=== PATIENT | male | born 1935 | race American Indian/Alaskan Native ===

== ENCOUNTER 2017-06-14 12:53 | Inpatient (IN) | payer MEDICARE, MEDICAID ==
[2017-06-14 12:53] VITALS: BMI 55.3
[2017-06-14] MEDS ORDERED: Sodium Chloride 0.9% 500 ML IV ONE ×2 (13:53→14:53)
[2017-06-14 14:38] LABS: BASO % 0.5 % (0.0-2.0); EOS # 0.2 K/uL (0.0-0.7); HEMATOCRIT 35.7 % (35.0-51.0); LYMPH # 1.5 K/uL (1.0-4.3); LYMPH % 17.9 % (20.0-40.0); MEAN CORPUSCULAR HEMOGLOBIN 29.8 pg (27.0-31.0); MEAN CORPUSCULAR HGB CONC 32.8 g/dL (33.0-37.0); MEAN PLATELET VOLUME 7.7 fL (7.2-11.7); MONO # 0.9 K/uL (0.0-0.8); MONO % 11.6 % (0.0-10.0); NRBC % 0.1 % (0.0-2.0); RED CELL DISTRIBUTION WIDTH 16.8 % (11.5-14.5); WHITE BLOOD COUNT 8.1 K/uL (4.8-10.8)
[2017-06-14 14:51] LABS: MEAN CELL VOLUME 90.9 fL (80.0-94.0)
[2017-06-14 15:03] LABS: INR 1.1
--- NOTE | 2017-06-14 15:03 | C.PDOC ---
History Of Present Illness 82 year old male presents to the ED via EMS after being sent from his [facility] for evaluation of rectal bleeding which was noted today. History obtained via [facility] notes due to patient's clinical condition (severe dementia). Time Seen by Provider: 06/14/17 13:23 Chief Complaint (Nursing): Abdominal Pain History Per: EMS, Other ([facility] ) History/Exam Limitations: clinical condition (severe dementia ) Onset/Duration Of Symptoms: Hrs Current Symptoms Are (Timing): Still Present Additional History Per: EMS, Custodial Past Medical History Reviewed: Historical Data, Nursing Documentation, Vital Signs Vital Signs: Last Vital Signs Temp Pulse 73 06/14/17 15:00 Resp 20 06/14/17 15:00 BP 127/64 06/14/17 15:00 Pulse Ox 99 06/14/17 15:00 - Medical History PMH: COPD, Dementia, Diabetes, Fractures (left wrist), HTN, Hypercholesterolemia , Parkinson's Disease Surgical History: No Surg Hx - [facility] Procedures CL FX REDUC-METACAR/CAR (10/30/02) COLONOSCOPY (08/03/06) ENDOSC POLYPECTOMY OF LG INTEST (03/14/05) ENDOSCOP DEST OF OTH LESION OR TISU OF LRG INTESTN (03/14/05) ESOPHAGOGASTRODUODENOSCOPY [EGD] W/CLOSED BIOPSY (08/03/06) INJECT/INFUSE NEC (03/14/05) MAGNETIC RESONANCE IMAGING OF BRAIN AND BRAIN STEM (08/28/05) OCCUPATIONAL THERAPY (05/06/14) OTH NONOPER CARD AND VASC MEASURE (12/26/14) PHYSICAL THERAPY NEC (05/06/14) TETANUS TOXOID ADMINIST (07/10/04) Family History: States: Unknown Family Hx - Social History Hx Tobacco Use: No Hx Alcohol Use: No Hx Substance Use: No - Immunization History Hx Tetanus Toxoid Vaccination: No Hx Influenza Vaccination: No Hx Pneumococcal Vaccination: Yes Review Of Systems Review Of Systems: ROS cannot be obtained secondary to pt's inabilty to answer questions. Physical Exam - Physical Exam Appears: Non-toxic, No Acute Distress, Chronically Ill Skin: Normal Color, Warm, Dry Head: Atraumatic, Normacephalic Eye(s): bilateral: Normal Inspection Oral Mucosa: Moist Neck: Normal ROM, Supple Chest: Symmetrical, No Deformity Cardiovascular: Rhythm Regular, No Murmur Respiratory: Normal Breath Sounds, No Rales, No Rhonchi, No Wheezing Gastrointestinal/Abdominal: Soft, No Tenderness Rectal: Heme Positive (black stools), No Mass, No Tenderness Extremity: Normal ROM, Capillary Refill (less than 2 seconds ) Neurological/Psych: Other (Oriented x1 at baseline according to geronimo) ED Course And Treatment - Laboratory Results Result Diagrams: 06/14/17 14:23 06/14/17 14:23 O2 Sat by Pulse Oximetry: 99 (on RA) Pulse Ox Interpretation: Normal Medical Decision Making Medical Decision Making: Progress: labs ordered and reviewed. IV Fluids administered. The case was discussed with the niece, Kendy Tiawo, who states that the patient was recently admitted in [facility] for rectal bleeding, anemia, and received 4 transfusion last week. Case was discussed with Dr. Russell Mike, who agrees to admit the patient. Disposition - Disposition Disposition: HOME/ ROUTINE Disposition Time: 13:00 Condition: FAIR - Clinical Impression Clinical Impression: GI bleeding - PA / DICE TABLE OPERATOR / Resident Statement MD/DO has reviewed & agrees with the documentation as recorded. - Scribe Statement The provider has reviewed the documentation as recorded by the Scribe (Sarah Mike) All medical record entries made by the Scribe were at my direction and personally dictated by me. I have reviewed the chart and agree that the record accurately reflects my personal performance of the history, physical exam, medical decision making, and the department course for this patient. I have also personally directed, reviewed, and agree with the discharge instructions and disposition.
[2017-06-14 15:13] LABS: CHLORIDE 105 mmol/L (98-107); SODIUM 142 mmol/L (132-148)
[2017-06-14 15:15] LABS: GFR AFRICAN-AMERICAN > 60
[2017-06-14 15:16] LABS: ALB/GLOB RATIO 1.2 (1.0-2.1); ALKALINE PHOSPHATASE 64 U/L (38-126); ALT/SGPT 13 U/L (21-72); AST/SGOT 21 U/L (17-59); BILIRUBIN,TOTAL 0.6 mg/dL (0.2-1.3); BLOOD UREA NITROGEN 19 mg/dL (9-20); CARBON DIOXIDE 21 mmol/L (22-30); GLUCOSE,RANDOM 78 mg/dL (75-110); TOTAL PROTEIN 6.1 g/dL (6.3-8.3)
[2017-06-14 15:17] LABS: CALCIUM 8.5 mg/dl (8.6-10.4)
[2017-06-14] MEDS ORDERED: Pantoprazole 40 mg EC Tab PO SCH (19:45)
--- NOTE | 2017-06-14 20:19 | CP.PCM.HP ---
History of Present Illness - History of Present Illness History of Present Illness: An 82-year-old male with P/M/H-severe dementia, COPD, DM, HTN, Parkinson's disease presented from halfway with C/O- rectal bleeding abdomen, abdominal pain and hematemesis. Patient was admitted last week at [facility] for rectal bleeding where EGD and colonoscopy were done which were suggestive of diverticular bleed and was given multiple blood transfusions. On Thursday, the attending noted tarry brown colored stools and on Thursday there was rectal bleeding with hematemesis for which he was brought to the hospital. On presentation, the patient is in coercive and unable to give further details. Hence further details could not be elicited. Past Patient History - Infectious Disease Hx of Infectious Diseases: None - Tetanus Immunizations Tetanus Immunization: Unknown - Past Medical History & Family History Past Medical History?: Yes - Past Social History Smoking Status: Never Smoked - CARDIAC Hx Hypercholesterolemia: Yes Hx Hypertension: Yes - PULMONARY Hx Chronic Obstructive Pulmonary Disease (COPD): Yes - NEUROLOGICAL Hx Dementia: Yes Hx Parkinson's Disease: Yes - HEENT Hx HEENT Problems: No - RENAL Hx Chronic Kidney Disease: No - ENDOCRINE/METABOLIC Hx Diabetes Mellitus Type 2: Yes - HEMATOLOGICAL/ONCOLOGICAL Hx Blood Disorders: No - INTEGUMENTARY Hx Dermatological Problems: No - MUSCULOSKELETAL/RHEUMATOLOGICAL Hx Fractures: Yes (left wrist) - GASTROINTESTINAL Hx Gastrointestinal Disorders: Yes Hx Ulcer: Yes - GENITOURINARY/GYNECOLOGICAL Hx Genitourinary Disorders: Yes Hx Incontinence: Yes - PSYCHIATRIC Hx Substance Use: No - SURGICAL HISTORY Hx Surgeries: Yes Other/Comment: Colonoscopy - ANESTHESIA Hx Anesthesia: Yes Hx Anesthesia Reactions: No Hx Malignant Hyperthermia: No Meds Home Medications: Home Medication List Medication Instructions Recorded Confirmed Type Acetaminophen [Tylenol 325mg tab] 650 mg PO Q4H PRN tab 06/16/17 Rx Carbidopa/Levodopa 25/100 mg 1 tab PO TID tab 06/16/17 Rx [Sinemet] Ferrous Sulfate [Feosol] 325 mg PO BID tab 06/16/17 Rx Memantine [Namenda] 10 mg PO DAILY tab 06/16/17 Rx Oxybutynin [Ditropan Tab] 5 mg PO TID tab 06/16/17 Rx levETIRAcetam [Keppra] 250 mg PO BID tab 06/16/17 Rx Allergies/Adverse Reactions: Allergies Allergy/AdvReac Type Severity Reaction Status Date / Time No Known Allergies Allergy Verified 07/07/17 21:17 Physical Exam - Constitutional Appears: Well - Head Exam Head Exam: ATRAUMATIC, NORMAL INSPECTION, NORMOCEPHALIC - Eye Exam Eye Exam: EOMI, Normal appearance, PERRL Pupil Exam: NORMAL ACCOMODATION, PERRL - ENT Exam ENT Exam: Mucous Membranes Moist, Normal Exam - Neck Exam Neck exam: Positive for: Normal Inspection - Respiratory Exam Respiratory Exam: Decreased Breath Sounds - Cardiovascular Exam Cardiovascular Exam: REGULAR RHYTHM, +S1, +S2 - GI/Abdominal Exam GI & Abdominal Exam: Diminished Bowel Sounds, Soft - Rectal Exam Rectal Exam: Deferred Results - Vital Signs Recent Vital Signs: Last Vital Signs Temp Pulse 76 06/14/17 18:05 Resp 25 H 06/14/17 18:05 BP 132/64 06/14/17 18:05 Pulse Ox 98 06/14/17 18:05 - Labs Result Diagrams: 06/16/17 07:25 06/15/17 11:28 Labs: Laboratory Results - last 24 hr 06/14/17 06/14/17 06/14/17 13:37 14:23 14:23 WBC 8.1 RBC 3.93 L Hgb 11.7 L D Hct 35.7 MCV 90.9 D MCH 29.8 MCHC 32.8 L RDW 16.8 H Plt Count 226 MPV 7.7 Neut % (Auto) 68.0 Lymph % (Auto) 17.9 L [place] % (Auto) 11.6 H Eos % (Auto) 2.0 Baso % (Auto) 0.5 Neut # 5.5 Lymph # 1.5 Cameron # 0.9 H Eos # 0.2 Baso # 0.0 PT INR APTT Sodium 142 Potassium 4.0 Chloride 105 Carbon Dioxide 21 L Anion Gap 20 BUN 19 Creatinine 0.9 Est GFR ( Amer) > 60 Est GFR (Non-Af Amer) > 60 Random Glucose 78 Calcium 8.5 L Total Bilirubin 0.6 AST 21 ALT 13 L Alkaline Phosphatase 64 Total Protein 6.1 L Albumin 3.4 L Globulin 2.8 Albumin/Globulin Ratio 1.2 Stool Occult Blood Positive H Blood Type Antibody Screen 06/14/17 06/14/17 14:50 14:50 WBC RBC Hgb Hct MCV MCH MCHC RDW Plt Count MPV Neut % (Auto) Lymph % (Auto) Cameron % (Auto) Eos % (Auto) Baso % (Auto) Neut # Lymph # Cameron # Eos # Baso # PT 12.8 H INR 1.1 APTT 36 H Sodium Potassium Chloride Carbon Dioxide Anion Gap BUN Creatinine Est GFR ( Amer) Est GFR (Non-Af Amer) Random Glucose Calcium Total Bilirubin AST ALT Alkaline Phosphatase Total Protein Albumin Globulin Albumin/Globulin Ratio Stool Occult Blood Blood Type B POSITIVE Antibody Screen Negative
[2017-06-14] MEDS: (Novolog) Insulin Aspart, Recombinant 100 u/ml 10 ml vial SC SCH (22:00)
--- NOTE | 2017-06-15 07:57 | CP.PCM.CON ---
<Amarilys Avendaño - Last Filed: 06/15/17 08:00> History of Present Illness - History of Present Illness History of Present Illness: Gastroenterology Fellow/PGY5 Consult Note 82 year old male with PUD, COPD, Dementia, Parkinson's, Hypertension, Hyperlipidemia, and Diabetes presenting from nursing facility with documentation of rectal bleeding. Patient oriented to person and place but unable to answer detailed questioning. Nursing facility contacted stating witnessed tarry stool on Thursday and documentation on Thursday of vomiting blood and rectal bleeding. On chart review, outpatient labwork showin/29 H/H 10.6/ 32 and 06/13 H/H 10./33. Since admission, nursing staff deny any signs of hematemesis, melena, or hematochezia. POA contacted stating patient was recently discharged a week ago [place] [facility] [place] with EGD/colonoscopy performed and diagnosed with diverticulosis. Unable to assess review of systems due to history of Dementia and Parkinson's. Per record review, prior EGD and colonoscopy 07/2006 unable to confirm results at this time but documented as having peptic ulcer and polyps. Family-unable to confirm in setting of Dementia Social- unable to confirm in setting of Dementia Surgery- unable to confirm in setting of Dementia Review of Systems - Review of Systems Systems not reviewed;Unavailable: Dementia Past Patient History - Infectious Disease Hx of Infectious Diseases: None - Tetanus Immunizations Tetanus Immunization: Unknown - Past Medical History & Family History Past Medical History?: Yes - Past Social History Smoking Status: Never Smoked - CARDIAC Hx Hypercholesterolemia: Yes Hx Hypertension: Yes - PULMONARY Hx Chronic Obstructive Pulmonary Disease (COPD): Yes - NEUROLOGICAL Hx Dementia: Yes Hx Parkinson's Disease: Yes - HEENT Hx HEENT Problems: No - RENAL Hx Chronic Kidney Disease: No - ENDOCRINE/METABOLIC Hx Diabetes Mellitus Type 2: Yes - HEMATOLOGICAL/ONCOLOGICAL Hx Blood Disorders: No - INTEGUMENTARY Hx Dermatological Problems: No - MUSCULOSKELETAL/RHEUMATOLOGICAL Hx Fractures: Yes (left wrist) - GASTROINTESTINAL Hx Gastrointestinal Disorders: Yes Hx Ulcer: Yes - GENITOURINARY/GYNECOLOGICAL Hx Genitourinary Disorders: Yes Hx Incontinence: Yes - PSYCHIATRIC Hx Substance Use: No - SURGICAL HISTORY Hx Surgeries: Yes Other/Comment: Colonoscopy - ANESTHESIA Hx Anesthesia: Yes Hx Anesthesia Reactions: No Hx Malignant Hyperthermia: No Meds Allergies/Adverse Reactions: Allergies Allergy/AdvReac Type Severity Reaction Status Date / Time No Known Allergies Allergy Verified 06/14/17 13:10 - Medications Medications: Current Medications Acetaminophen (Tylenol 325mg Tab) 650 mg PO Q4H PRN PRN Reason: Pain, Mild (1-3) Carbidopa/Levodopa (Sinemet) 1 tab PO TID [facility] Donepezil HCl (Aricept) 10 mg PO HS [facility] Last Admin: 06/14/17 22:24 Dose: 10 mg Ferrous Sulfate (Feosol) 325 mg PO BID [facility] Insulin Aspart (Novolog) 0 unit SC ACHS [facility] PRN Reason: Protocol Last Admin: 06/14/17 22:00 Dose: Not Given Levetiracetam (Keppra) 250 mg PO BID [facility] Last Admin: 06/14/17 20:18 Dose: 250 mg Loperamide HCl (Imodium) 2 mg PO Q6H PRN PRN Reason: Diarrhea Memantine (Namenda) 10 mg PO DAILY [facility] Ondansetron HCl (Zofran Odt) 4 mg PO Q8H PRN PRN Reason: Nausea/Vomiting Oxybutynin Chloride (Ditropan Tab) 5 mg PO TID [facility] Pantoprazole Sodium (Protonix Ec Tab) 40 mg PO BID [facility] Prochlorperazine (Compazine Rectal Supp) 25 mg UT Q12H PRN PRN Reason: Nausea/Vomiting, IF NPO Physical Exam - Constitutional Appears: Non-toxic, No Acute Distress - Head Exam Head Exam: ATRAUMATIC, NORMOCEPHALIC - Eye Exam Eye Exam: EOMI, PERRL Pupil Exam: PERRL. absent: Miosis, Mydriatic - ENT Exam ENT Exam: Mucous Membranes Moist, Normal Oropharynx - Neck Exam Neck exam: Positive for: Full Rom, Normal Inspection - Respiratory Exam Respiratory Exam: Clear to Auscultation Bilateral. absent: Rales, Rhonchi, Wheezes - Cardiovascular Exam Cardiovascular Exam: RRR, +S1, +S2. absent: Gallop, Rubs - GI/Abdominal Exam GI & Abdominal Exam: Normal Bowel Sounds, Soft. absent: Distended, Firm, Guarding, Organomegaly, Rebound, Rigid, Tenderness - Rectal Exam Rectal Exam: absent: Black Stool, Bloody Stool, Fecal Impaction Additional comments: dark green stool - Neurological Exam Neurological exam: Alert Additional comments: oriented to person and place, nods head to further questioning inappropriately - Psychiatric Exam Psychiatric exam: Normal Affect, Normal Mood - Skin Skin Exam: Dry, Intact, Normal Color, Warm Results - Vital Signs Recent Vital Signs: Last Vital Signs Temp 98.5 F 06/14/17 23:24 Pulse 78 06/14/17 23:30 Resp 20 06/14/17 23:24 BP 121/65 06/14/17 23:24 Pulse Ox 96 06/14/17 23:24 - Labs Result Diagrams: 06/14/17 14:23 06/14/17 14:23 Labs: Laboratory Results - last 24 hr 06/14/17 06/14/17 06/14/17 13:37 14:23 14:23 WBC 8.1 RBC 3.93 L Hgb 11.7 L D Hct 35.7 MCV 90.9 D MCH 29.8 MCHC 32.8 L RDW 16.8 H Plt Count 226 MPV 7.7 Neut % (Auto) 68.0 Lymph % (Auto) 17.9 L [place] % (Auto) 11.6 H Eos % (Auto) 2.0 Baso % (Auto) 0.5 Neut # 5.5 Lymph # 1.5 [place] # 0.9 H Eos # 0.2 Baso # 0.0 PT INR APTT Sodium 142 Potassium 4.0 Chloride 105 Carbon Dioxide 21 L Anion Gap 20 BUN 19 Creatinine 0.9 Est GFR ( Amer) > 60 Est GFR (Non-Af Amer) > 60 POC Glucose (mg/dL) Random Glucose 78 Calcium 8.5 L Total Bilirubin 0.6 AST 21 ALT 13 L Alkaline Phosphatase 64 Total Protein 6.1 L Albumin 3.4 L Globulin 2.8 Albumin/Globulin Ratio 1.2 Stool Occult Blood Positive H Blood Type Antibody Screen 06/14/17 06/14/17 06/14/17 14:50 14:50 22:00 WBC RBC Hgb Hct MCV MCH MCHC RDW Plt Count MPV Neut % (Auto) Lymph % (Auto) [place] % (Auto) Eos % (Auto) Baso % (Auto) Neut # Lymph # [place] # Eos # Baso # PT 12.8 H INR 1.1 APTT 36 H Sodium Potassium Chloride Carbon Dioxide Anion Gap BUN Creatinine Est GFR ( Amer) Est GFR (Non-Af Amer) POC Glucose (mg/dL) 89 Random Glucose Calcium Total Bilirubin AST ALT Alkaline Phosphatase Total Protein Albumin Globulin Albumin/Globulin Ratio Stool Occult Blood Blood Type B POSITIVE Antibody Screen Negative Assessment & Plan - Assessment and Plan (Free Text) Assessment: 82 year old male with PUD, COPD, Dementia, Parkinson's, Hypertension, Hyperlipidemia, and Diabetes presenting from nursing facility with documentation of rectal bleeding. Recent [place] [facility] [place] POA endorses EGD/colonoscopy performed with diagnosis of diverticulosis. Active treatment of normocytic anemia. On record review, prior EGD and colonoscopy 2005 documented as having peptic ulcer and polyps. Plan: >started on FeSO4 06/12 >06/13 outpatient H/H 10. >pending repeat H/H >awaiting [facility] [place] of recent inpatient stay and EGD/colonoscopy >continue PPI BID >continue clear liquid diet >avoid NSAIDs >discussed treatment plan with POA >further recommendations based on records, labwork, and monitoring of clinical condition <Edel Waldrop MD - Last Filed: 06/15/17 12:16> Meds - Medications Medications: Current Medications Acetaminophen (Tylenol 325mg Tab) 650 mg PO Q4H PRN PRN Reason: Pain, Mild (1-3) Carbidopa/Levodopa (Sinemet) 1 tab PO TID [facility] Last Admin: 06/15/17 10:05 Dose: 1 tab Donepezil HCl (Aricept) 10 mg PO HS [facility] Last Admin: 06/14/17 22:24 Dose: 10 mg Ferrous Sulfate (Feosol) 325 mg PO BID [facility] Last Admin: 06/15/17 10:06 Dose: 325 mg Insulin Aspart (Novolog) 0 unit SC [facility] PRN Reason: Protocol Last Admin: 06/15/17 08:18 Dose: Not Given Levetiracetam (Keppra) 250 mg PO BID [facility] Last Admin: 06/15/17 10:05 Dose: 250 mg Loperamide HCl (Imodium) 2 mg PO Q6H PRN PRN Reason: Diarrhea Memantine (Namenda) 10 mg PO DAILY [facility] Last Admin: 06/15/17 10:05 Dose: 10 mg Ondansetron HCl (Zofran Odt) 4 mg PO Q8H PRN PRN Reason: Nausea/Vomiting Oxybutynin Chloride (Ditropan Tab) 5 mg PO TID [facility] Last Admin: 06/15/17 10:05 Dose: 5 mg Pantoprazole Sodium (Protonix Ec Tab) 40 mg PO BID [facility] Last Admin: 06/15/17 10:05 Dose: 40 mg Prochlorperazine (Compazine Rectal Supp) 25 mg UT Q12H PRN PRN Reason: Nausea/Vomiting, IF NPO Results - Vital Signs Recent Vital Signs: Last Vital Signs Temp 97.6 F 06/15/17 08:00 Pulse 68 06/15/17 08:00 Resp 20 06/15/17 08:00 BP 116/69 06/15/17 08:00 Pulse Ox 94 L 06/15/17 08:00 - Labs Result Diagrams: 06/15/17 11:28 06/15/17 11:28 Labs: Laboratory Results - last 24 hr 06/14/17 06/14/17 06/14/17 13:37 14:23 14:23 WBC 8.1 RBC 3.93 L Hgb 11.7 L D Hct 35.7 MCV 90.9 D MCH 29.8 MCHC 32.8 L RDW 16.8 H Plt Count 226 MPV 7.7 Neut % (Auto) 68.0 Lymph % (Auto) 17.9 L [place] % (Auto) 11.6 H Eos % (Auto) 2.0 Baso % (Auto) 0.5 Neut # 5.5 Lymph # 1.5 [place] # 0.9 H Eos # 0.2 Baso # 0.0 PT INR APTT Sodium 142 Potassium 4.0 Chloride 105 Carbon Dioxide 21 L Anion Gap 20 BUN 19 Creatinine 0.9 Est GFR ( Amer) > 60 Est GFR (Non-Af Amer) > 60 POC Glucose (mg/dL) Random Glucose 78 Calcium 8.5 L Total Bilirubin 0.6 AST 21 ALT 13 L Alkaline Phosphatase 64 Total Protein 6.1 L Albumin 3.4 L Globulin 2.8 Albumin/Globulin Ratio 1.2 Stool Occult Blood Positive H Blood Type Antibody Screen 06/14/17 06/14/17 06/14/17 14:50 14:50 22:00 WBC RBC Hgb Hct MCV MCH MCHC RDW Plt Count MPV Neut % (Auto) Lymph % (Auto) [place] % (Auto) Eos % (Auto) Baso % (Auto) Neut # Lymph # [place] # Eos # Baso # PT 12.8 H INR 1.1 APTT 36 H Sodium Potassium Chloride Carbon Dioxide Anion Gap BUN Creatinine Est GFR ( Amer) Est GFR (Non-Af Amer) POC Glucose (mg/dL) 89 Random Glucose Calcium Total Bilirubin AST ALT Alkaline Phosphatase Total Protein Albumin Globulin Albumin/Globulin Ratio Stool Occult Blood Blood Type B POSITIVE Antibody Screen Negative 06/15/17 06/15/17 06/15/17 07:54 11:28 11:28 WBC 8.0 RBC 3.84 L Hgb 11.5 L Hct 34.3 L MCV 89.4 MCH 30.0 MCHC 33.6 RDW 16.8 H Plt Count 268 MPV 8.3 Neut % (Auto) 67.1 Lymph % (Auto) 17.2 L [place] % (Auto) 11.9 H Eos % (Auto) 3.1 Baso % (Auto) 0.7 Neut # 5.4 Lymph # 1.4 [place] # 1.0 H Eos # 0.2 Baso # 0.1 PT INR APTT Sodium 143 Potassium 3.8 Chloride 103 Carbon Dioxide 26 Anion Gap 18 BUN 15 Creatinine 0.8 Est GFR ( Amer) > 60 Est GFR (Non-Af Amer) > 60 POC Glucose (mg/dL) 73 Random Glucose 93 Calcium 8.4 L Total Bilirubin 0.7 AST 20 ALT 21 D Alkaline Phosphatase 56 Total Protein 6.1 L Albumin 3.4 L Globulin 2.7 Albumin/Globulin Ratio 1.2 Stool Occult Blood Blood Type Antibody Screen Attending/Attestation - Attestation I have personally seen and examined this patient.: Yes I have fully participated in the care of the patient.: Yes I have reviewed all pertinent clinical information: Yes Notes (Text): 06/15/17 12:14 patient seen with GI fellow on rounds this am. This is a 82 year old male with PUD, COPD, Dementia, Parkinson's, Hypertension, Hyperlipidemia, and Diabetes presenting from nursing facility with documentation of rectal bleeding. Recent [place] [facility] [place] due to GI bleed s/p EGD/colonoscopy performed with diagnosis of diverticulosis. Active treatment of normocytic anemia. H/Hct stable with no episodes since admission. Awaiting [facility] [place] of recent inpatient stay and EGD/colonoscopy. Continue clear liquid diet and advance as tolerated. No urgent endoscopic evaluation necessary. PPI daily. Likely self resolved diverticulosis. Supportive care
[2017-06-15] MEDS: (Novolog) Insulin Aspart, Recombinant 100 u/ml 10 ml vial SC SCH ×4 (08:18→21:52)
[2017-06-15] MEDS: Pantoprazole 40 mg EC Tab PO SCH ×2 (10:05→17:55)
[2017-06-15 11:57] LABS: CHLORIDE 103 mmol/L (98-107)
[2017-06-15 11:58] LABS: BASO # 0.1 K/uL (0.0-0.2); BASO % 0.7 % (0.0-2.0); EOS # 0.2 K/uL (0.0-0.7); EOS % 3.1 % (0.0-4.0); HEMATOCRIT 34.3 % (35.0-51.0); LYMPH # 1.4 K/uL (1.0-4.3); LYMPH % 17.2 % (20.0-40.0); MEAN CELL VOLUME 89.4 fL (80.0-94.0); MEAN CORPUSCULAR HGB CONC 33.6 g/dL (33.0-37.0); MEAN PLATELET VOLUME 8.3 fL (7.2-11.7); MONO % 11.9 % (0.0-10.0); NRBC % 0.1 % (0.0-2.0); POTASSIUM 3.8 mmol/L (3.6-5.2); RED CELL DISTRIBUTION WIDTH 16.8 % (11.5-14.5); SODIUM 143 mmol/L (132-148)
[2017-06-15 12:00] LABS: ALB/GLOB RATIO 1.2 (1.0-2.1); ALKALINE PHOSPHATASE 56 U/L (38-126); AST/SGOT 20 U/L (17-59); BILIRUBIN,TOTAL 0.7 mg/dL (0.2-1.3); CARBON DIOXIDE 26 mmol/L (22-30); GFR AFRICAN-AMERICAN > 60; TOTAL PROTEIN 6.1 g/dL (6.3-8.3)
[2017-06-15] MEDS ORDERED: Iodixanol 320 MG/ML 100 ML BOTTLE IV ONE (12:00)
[2017-06-15 12:01] LABS: ALT/SGPT 21 U/L (21-72); BLOOD UREA NITROGEN 15 mg/dL (9-20); CALCIUM 8.4 mg/dl (8.6-10.4); GLUCOSE,RANDOM 93 mg/dL (75-110)
--- NOTE | 2017-06-15 15:31 | CT ---
PROCEDURE: CT Abdomen and Pelvis with contrast HISTORY: assess for retroperitoneal bleed, anemia COMPARISON: None available. TECHNIQUE: Contrast dose: 100 mL Visipaque Radiation dose: Total exam DLP = 438.58 mGy-cm. This CT exam was performed using one or more of the following dose reduction techniques: Automated exposure control, adjustment of the mA and/or kV according to patient size, and/or use of iterative reconstruction technique. FINDINGS: LOWER THORAX: No visible consolidation, pleural effusion, or pneumothorax. Borderline cardiomegaly. LIVER: Hypoattenuation of the liver compatible with hepatic steatosis. 8 mm right hepatic lobe hypodensity; statistically likely a cyst or hemangioma. Mild intrahepatic biliary ductal dilatation. GALLBLADDER AND BILE DUCTS: Decompressed gallbladder appears otherwise grossly unremarkable. Pancreas 5 mm hypo dense focus within the pancreatic body (series 3, image 58) favored to represent a cystic structure. SPLEEN: Unremarkable. ADRENALS: Unremarkable. KIDNEYS AND URETERS: No obstructing calculus or hydronephrosis identified. 6.8 cm left renal hypodense lesion measures approximately 9 HU compatible with cyst. Additional too small to characterize renal hypodensities, statistically likely cysts. VASCULATURE: No aortic aneurysm. BOWEL: Stomach is nondistended. Lack of oral contrast limits evaluation for bowel pathology. Bowel loops appear within normal limits of caliber without evidence of obstruction. Moderate constipation. APPENDIX: The appendix is not identified. No secondary signs of acute appendicitis identified. PERITONEUM: No significant free fluid. No definite free air. LYMPH NODES: No bulky adenopathy identified. BLADDER: Unremarkable. REPRODUCTIVE: Enlarged prostate gland measures approximately 4.0 x 5.6 cm. BONES: Multilevel degenerative changes. Scoliosis. Facet hypertrophy. OTHER FINDINGS: None. IMPRESSION: Hepatic steatosis. 8 mm right hepatic lobe hypodensity, statistically likely a cyst or hemangioma. Mild intrahepatic biliary ductal dilatation. 5 mm hypo dense focus within the pancreatic body favored to represent a cystic structure. Differential diagnosis includes small cystic neoplasm versus sequela of prior pancreatitis (dilated side duct radicles or tiny pseudocyst). 6.8 cm left renal cyst. Additional too small to characterize bilateral renal hypodensities ; statistically likely cysts. Moderate constipation. Enlarged prostate gland. Recommend correlation with PSA. Retroperitoneal hemorrhage is not identified. Additional incidental findings as above.
--- NOTE | 2017-06-15 19:28 | CP.PCM.PN ---
Subjective - Date & Time of Evaluation Date of Evaluation: 06/15/17 Time of Evaluation: 09:40 - Subjective Subjective: clinically same Objective - Vital Signs/Intake and Output Vital Signs (last 24 hours): Temp Pulse Resp BP Pulse Ox 98.4 F 84 19 109/64 94 L 06/15/17 15:49 06/15/17 16:00 06/15/17 15:49 06/15/17 15:49 06/15/17 15:49 Intake and Output: 06/15/17 06/16/17 18:59 06:59 Intake Total 600 Balance 600 - Medications Medications: Current Medications Acetaminophen (Tylenol 325mg Tab) 650 mg PO Q4H PRN PRN Reason: Pain, Mild (1-3) Carbidopa/Levodopa (Sinemet) 1 tab PO TID [facility] Last Admin: 06/15/17 17:55 Dose: 1 tab Donepezil HCl (Aricept) 10 mg PO HS [facility] Last Admin: 06/14/17 22:24 Dose: 10 mg Ferrous Sulfate (Feosol) 325 mg PO BID [facility] Last Admin: 06/15/17 17:55 Dose: 325 mg Insulin Aspart (Novolog) 0 unit SC ACHS [facility] PRN Reason: Protocol Last Admin: 06/15/17 16:57 Dose: Not Given Levetiracetam (Keppra) 250 mg PO BID [facility] Last Admin: 06/15/17 17:55 Dose: 250 mg Loperamide HCl (Imodium) 2 mg PO Q6H PRN PRN Reason: Diarrhea Memantine (Namenda) 10 mg PO DAILY [facility] Last Admin: 06/15/17 10:05 Dose: 10 mg Ondansetron HCl (Zofran Odt) 4 mg PO Q8H PRN PRN Reason: Nausea/Vomiting Oxybutynin Chloride (Ditropan Tab) 5 mg PO TID [facility] Last Admin: 06/15/17 17:55 Dose: 5 mg Pantoprazole Sodium (Protonix Ec Tab) 40 mg PO BID [facility] Last Admin: 06/15/17 17:55 Dose: 40 mg Prochlorperazine (Compazine Rectal Supp) 25 mg [place] Q12H PRN PRN Reason: Nausea/Vomiting, IF NPO - Labs Labs: 06/15/17 11:28 06/15/17 11:28 PT 12.8 SECONDS (9.7-12.2) H 06/14/17 14:50 INR 1.1 06/14/17 14:50 APTT 36 SECONDS (21-34) H 06/14/17 14:50 - Constitutional Appears: Well - Head Exam Head Exam: ATRAUMATIC, NORMAL INSPECTION, NORMOCEPHALIC - Eye Exam Eye Exam: EOMI, Normal appearance, PERRL Pupil Exam: NORMAL ACCOMODATION, PERRL - ENT Exam ENT Exam: Mucous Membranes Moist, Normal Exam - Neck Exam Neck Exam: Full ROM, Normal Inspection. absent: Lymphadenopathy - Respiratory Exam Respiratory Exam: Decreased Breath Sounds - Cardiovascular Exam Cardiovascular Exam: REGULAR RHYTHM, +S1, +S2 - GI/Abdominal Exam GI & Abdominal Exam: Soft, Diminished Bowel Sounds - Rectal Exam Rectal Exam: Deferred
[2017-06-16 01:19] VITALS: RESP 20
[2017-06-16] MEDS: (Novolog) Insulin Aspart, Recombinant 100 u/ml 10 ml vial SC SCH ×3 (07:11→16:50)
[2017-06-16 07:35] LABS: BASO % 0.6 % (0.0-2.0); EOS # 0.2 K/uL (0.0-0.7); EOS % 3.2 % (0.0-4.0); HEMATOCRIT 32.7 % (35.0-51.0); LYMPH # 1.3 K/uL (1.0-4.3); LYMPH % 20.1 % (20.0-40.0); MEAN CELL VOLUME 89.7 fL (80.0-94.0); MEAN CORPUSCULAR HEMOGLOBIN 30.3 pg (27.0-31.0); MEAN CORPUSCULAR HGB CONC 33.8 g/dL (33.0-37.0); MEAN PLATELET VOLUME 7.7 fL (7.2-11.7); MONO # 0.7 K/uL (0.0-0.8); MONO % 10.8 % (0.0-10.0); NRBC % 0.1 % (0.0-2.0); RED CELL DISTRIBUTION WIDTH 16.5 % (11.5-14.5); WHITE BLOOD COUNT 6.5 K/uL (4.8-10.8)
[2017-06-16 12:03] VITALS: PULSE 84
[2017-06-16] MEDS: Pantoprazole 40 mg EC Tab PO SCH (14:04)
--- NOTE | 2017-06-16 14:32 | CP.PCM.PN ---
Subjective - Date & Time of Evaluation Date of Evaluation: 06/16/17 Time of Evaluation: 11:45 - Subjective Subjective: TACTICAL RESPONSE GROUP OFFICER NOTES 82 yr old male with PMHX , of COPD, Dementia, Diabetes, Fractures (left wrist) , HTN, Hypercholesterolemia, Parkinson's Disease admitted from rehab for rectal bleeding hgb stable - 11.7-->11.5--11.1 Patient seen today, awake, alert, NAD denies any abdominal pain , N/V , dry cough noted . swallow eval done recommends puree diet with nectar thick liquids and pt tolerated well . seen by GI and reviewed recent EGD/colonoscopy report from [facility] and no intervention recommended since hgb stable seen by Dr. Russell stewart, as per Dr. Sanjuanita Stewart patient is stable for discharge back to [facility] today and Dr. Russell stewart will follow the patient at [facility] Objective - Vital Signs/Intake and Output Vital Signs (last 24 hours): Temp Pulse Resp BP Pulse Ox 97.7 F 84 20 109/63 92 L 06/16/17 08:00 06/16/17 11:45 06/16/17 08:00 06/16/17 08:00 06/16/17 11:45 Intake and Output: 06/16/17 06/16/17 06:59 18:59 Intake Total 200 Balance 200 - Medications Medications: Current Medications Acetaminophen (Tylenol 325mg Tab) 650 mg PO Q4H PRN PRN Reason: Pain, Mild (1-3) Carbidopa/Levodopa (Sinemet) 1 tab PO TID [facility] Last Admin: 06/16/17 14:06 Dose: 1 tab Donepezil HCl (Aricept) 10 mg PO HS [facility] Last Admin: 06/15/17 21:07 Dose: 10 mg Ferrous Sulfate (Feosol) 325 mg PO BID [facility] Last Admin: 06/16/17 14:06 Dose: 325 mg Insulin Aspart (Novolog) 0 unit SC ACHS [facility] PRN Reason: Protocol Last Admin: 06/16/17 12:35 Dose: Not Given Levetiracetam (Keppra) 250 mg PO BID [facility] Last Admin: 06/16/17 14:06 Dose: 250 mg Loperamide HCl (Imodium) 2 mg PO Q6H PRN PRN Reason: Diarrhea Memantine (Namenda) 10 mg PO DAILY [facility] Last Admin: 06/16/17 14:06 Dose: 10 mg Ondansetron HCl (Zofran Odt) 4 mg PO Q8H PRN PRN Reason: Nausea/Vomiting Oxybutynin Chloride (Ditropan Tab) 5 mg PO TID [facility] Last Admin: 06/16/17 14:04 Dose: 5 mg Pantoprazole Sodium (Protonix Ec Tab) 40 mg PO BID [facility] Last Admin: 06/16/17 14:04 Dose: 40 mg Prochlorperazine (Compazine Rectal Supp) 25 mg [place] Q12H PRN PRN Reason: Nausea/Vomiting, IF NPO - Labs Labs: 06/16/17 07:25 06/15/17 11:28 PT 12.8 SECONDS (9.7-12.2) H 06/14/17 14:50 INR 1.1 06/14/17 14:50 APTT 36 SECONDS (21-34) H 06/14/17 14:50
[2017-06-16] MEDS ORDERED: Influenza Vaccine 60 mcg/0.5 mL SYR (4YR UP) IM ONE (15:00)
[2017-06-16 15:38] VITALS: BP 116/76; TEMP 97.5; O2SAT 94
--- NOTE | 2017-06-16 17:52 | CP.PCM.PN ---
Subjective - Date & Time of Evaluation Date of Evaluation: 06/16/17 Time of Evaluation: 11:00 - Subjective Subjective: clinically same Objective - Vital Signs/Intake and Output Vital Signs (last 24 hours): Temp Pulse Resp BP Pulse Ox 97.5 F L 84 20 116/76 94 L 06/16/17 15:34 06/16/17 15:34 06/16/17 15:34 06/16/17 15:34 06/16/17 15:34 Intake and Output: 06/16/17 06/16/17 06:59 18:59 Intake Total 200 150 Balance 200 150 - Labs Labs: 06/16/17 07:25 06/15/17 11:28 PT 12.8 SECONDS (9.7-12.2) H 06/14/17 14:50 INR 1.1 06/14/17 14:50 APTT 36 SECONDS (21-34) H 06/14/17 14:50 - Constitutional Appears: Well - Head Exam Head Exam: ATRAUMATIC, NORMAL INSPECTION, NORMOCEPHALIC - Eye Exam Eye Exam: EOMI, Normal appearance, PERRL Pupil Exam: NORMAL ACCOMODATION, PERRL - ENT Exam ENT Exam: Mucous Membranes Moist, Normal Exam - Neck Exam Neck Exam: Full ROM, Normal Inspection. absent: Lymphadenopathy - Respiratory Exam Respiratory Exam: Decreased Breath Sounds - Cardiovascular Exam Cardiovascular Exam: REGULAR RHYTHM, +S1, +S2 - GI/Abdominal Exam GI & Abdominal Exam: Soft, Diminished Bowel Sounds - Rectal Exam Rectal Exam: Deferred
== END 2017-06-16 17:25 | DRG 379 ==
LOC: C.ER 12:53 → C.9E 15:15 → C.5S 18:27
PROVIDERS: ADMIT Internal Medicine Nephrology; ATTEND Internal Medicine Nephrology
DX: K62.5 Hemorrhage of anus and rectum (principal); G20 Parkinson's disease; F02.80 Dementia in other diseases classified elsewhere, unspecified severity, without behavioral disturbance, psychotic disturbance, mood disturbance, and anxiety; J44.9 Chronic obstructive pulmonary disease, unspecified; E11.9 Type 2 diabetes mellitus without complications; I10 Essential (primary) hypertension; E78.00 Pure hypercholesterolemia, unspecified

== ENCOUNTER 2017-06-21 14:34 | Inpatient (IN) | payer MEDICARE, MEDICAID ==
[2017-06-21 14:34] VITALS: BMI 55.3
--- NOTE | 2017-06-21 15:37 | C.PDOC ---
History Of Present Illness 82 year old male, history of hypertension, dementia, COPD, diabetes, Parkinsons , recently discharged from [facility], [facility] to tolerate [facility]. As per penitentiary, the patient arrived there yesterday and was tolerating liquids. Today he will not take liquids or his medications. He will open his mouth and put liquids/meds in mouth but does not swallow. This has been ongoing throughout day prompting [facility]entiary to send patient to the ED. Time Seen by Provider: 06/21/17 15:16 Chief Complaint (Nursing): Medical Clearance History Per: Other (Fdc) History/Exam Limitations: other (Dementia) Reports Recently: Hospitalized Additional History Per: Prior Records Past Medical History Reviewed: Historical Data, Nursing Documentation, Vital Signs Vital Signs: Last Vital Signs Temp 97.8 F 06/21/17 16:16 Pulse 73 06/21/17 18:20 Resp 21 06/21/17 18:20 BP 140/62 06/21/17 18:20 Pulse Ox 96 06/21/17 18:20 - Medical History PMH: Anemia, COPD, Dementia, Diabetes, Fractures (left wrist), HTN, Hypercholesterolemia, Parkinson's Disease Denies: Chronic Kidney Disease - [facility] Procedures CL FX REDUC-METACAR/CAR (10/30/02) COLONOSCOPY (08/03/06) ENDOSC POLYPECTOMY OF LG INTEST (03/14/05) ENDOSCOP DEST OF OTH LESION OR TISU OF LRG INTESTN (03/14/05) ESOPHAGOGASTRODUODENOSCOPY [EGD] W/CLOSED BIOPSY (08/03/06) INJECT/INFUSE NEC (03/14/05) MAGNETIC RESONANCE IMAGING OF BRAIN AND BRAIN STEM (08/28/05) OCCUPATIONAL THERAPY (05/06/14) OTH NONOPER CARD AND VASC MEASURE (12/26/14) PHYSICAL THERAPY NEC (05/06/14) TETANUS TOXOID ADMINIST (07/10/04) Family History: States: Unknown Family Hx - Social History Hx Tobacco Use: No Hx Alcohol Use: No Hx Substance Use: No - Immunization History Hx Tetanus Toxoid Vaccination: No Hx Influenza Vaccination: No Hx Pneumococcal Vaccination: Yes Review Of Systems Constitutional: Negative for: Fever, Chills Respiratory: Negative for: Cough, Other (URI symptoms) Gastrointestinal: Negative for: Vomiting, Diarrhea Physical Exam - Physical Exam Appears: No Acute Distress, Other (Patient awake and cooperative and says "yes" to all questions.) Skin: Normal Color, Dry, No Rash, Other (Skin cool) Head: Atraumatic, Normacephalic Eye(s): bilateral: PERRL Oral Mucosa: Moist Neck: Supple Cardiovascular: Rhythm Regular, No Murmur Respiratory: Normal Breath Sounds ED Course And Treatment - Laboratory Results Result Diagrams: 06/21/17 16:03 06/21/17 16:03 ECG: Interpreted By Me, Viewed By Me ECG Rhythm: R BBB Rate From EC O2 Sat by Pulse Oximetry: 96 (on room air) Pulse Ox Interpretation: Normal Medical Decision Making Medical Decision Making: Plan: Basic Blood Work Will speak with Dr. Mike Disposition Discussed With Dr.: Lluvia Mike Doctor Will See Patient In The: Hospital Counseled Patient/Family Regarding: Studies Performed - Disposition Disposition: HOSPITALIZED Disposition Time: 18:23 Condition: GUARDED Forms: [employer] (Maori) - Clinical Impression Clinical Impression: Change in mental status, Medical assessment, Swallowing dysfunction - Scribe Statement The provider has reviewed the documentation as recorded by the Jamesonibe Paco Nathan Provider Attestation: All medical record entries made by the Scribe were at my direction and personally dictated by me. I have reviewed the chart and agree that the record accurately reflects my personal performance of the history, physical exam, medical decision making, and the department course for this patient. I have also personally directed, reviewed, and agree with the discharge instructions and disposition. Decision To Admit - Pt Status Changed To: Hospital Disposition Of: Inpatient - Admit Certification Admit to Inpatient:: After my assessment, the patient will require hospitalization for at least two midnights. This is because of the severity of symptoms shown, intensity of services needed, and/or the medical risk in this patient being treated as an outpatient. - InPatient: Physician Admission Certification: I certify that this patient requires 2 or more midnights of care for the following reason:: unable to swallow, needs PEG - . Bed Request Type: Regular Admitting Physician: Lluvia Mike Patient Diagnosis: Change in mental status, Medical assessment, Swallowing dysfunction
[2017-06-21 16:13] LABS: BASO # 0.1 K/uL (0.0-0.2); BASO % 0.7 % (0.0-2.0); EOS # 0.1 K/uL (0.0-0.7); EOS % 1.7 % (0.0-4.0); HEMATOCRIT 35.7 % (35.0-51.0); LYMPH # 1.1 K/uL (1.0-4.3); LYMPH % 14.8 % (20.0-40.0); MEAN CELL VOLUME 90.4 fL (80.0-94.0); MEAN CORPUSCULAR HEMOGLOBIN 29.9 pg (27.0-31.0); MEAN CORPUSCULAR HGB CONC 33.1 g/dL (33.0-37.0); MEAN PLATELET VOLUME 7.4 fL (7.2-11.7); MONO # 0.7 K/uL (0.0-0.8); MONO % 9.2 % (0.0-10.0); RED CELL DISTRIBUTION WIDTH 17.1 % (11.5-14.5); WHITE BLOOD COUNT 7.6 K/uL (4.8-10.8)
[2017-06-21 16:38] LABS: CHLORIDE 106 mmol/L (98-107); POTASSIUM 3.4 mmol/L (3.6-5.2); SODIUM 142 mmol/L (132-148)
[2017-06-21 16:40] LABS: ALKALINE PHOSPHATASE 75 U/L (38-126); AST/SGOT 17 U/L (17-59); BILIRUBIN,TOTAL 0.8 mg/dL (0.2-1.3); CARBON DIOXIDE 23 mmol/L (22-30); GFR AFRICAN-AMERICAN > 60; TOTAL PROTEIN 6.9 g/dL (6.3-8.3)
--- NOTE | 2017-06-21 16:40 | RAD ---
PROCEDURE: CHEST RADIOGRAPH, 1 VIEW HISTORY: Abdominal pain COMPARISON: 09/26/2015 FINDINGS: LUNGS: Clear. PLEURA: No pneumothorax or pleural fluid seen. CARDIOVASCULAR: No radiographic findings to suggest acute or significant cardiovascular disease. OSSEOUS STRUCTURES: No significant abnormalities. VISUALIZED UPPER ABDOMEN: Normal. OTHER FINDINGS: None. IMPRESSION: No active disease. No acute/significant interval changes. Concordant results with the preliminary interpretation rendered by the emergency department physician procedure.
[2017-06-21 16:41] LABS: ALT/SGPT 27 U/L (21-72); BLOOD UREA NITROGEN 18 mg/dL (9-20); CALCIUM 8.9 mg/dl (8.6-10.4); GLUCOSE,RANDOM 61 mg/dL (75-110)
[2017-06-21] MEDS: Potassium Ch 20mEq in D5-1/2NS 1,000 ML IV SCH (20:07)
--- NOTE | 2017-06-21 21:33 | CP.PCM.CON ---
History of Present Illness - History of Present Illness History of Present Illness: Asked by Dr. Mike for a GI consultation on this patient. 82 year old male with history of parkinson's dementia, COPD, HTN, DM, hyperlipidemia who presents from nursing facility for failure to thrive and inability to tolerate PO diet. Patient is awake and alert, though not oriented and is not able to participate in meaningful discussion due to underlying dementia, additional information obtained via chart review, discussion with nursing staff, and discussion with patient family members. He was recently admitted to [facility] 1 week ago for suspected lower GI bleeding and discharged after conservative management with resolution of bleeding. Apparently since hospital discharge he has not been consuming adequate caloric intake and only tolerating PO liquids. There is no reported abdominal pain, nausea, vomiting, fever/chills , weight loss, or rectal bleeding. He had a recent EGD/colonoscopy last month at [facility] which showed gastritis, colonic polyps, right sided diverticulosis. Social history: former smoker, no ETOH use Family history: unable to obtain due to patient dementia Review of Systems - Review of Systems Systems not reviewed;Unavailable: Dementia Past Patient History - Infectious Disease Hx of Infectious Diseases: None - Tetanus Immunizations Tetanus Immunization: Unknown - Past Medical History & Family History Past Medical History?: Yes - Past Social History Smoking Status: Never Smoked - CARDIAC Hx Hypercholesterolemia: Yes Hx Hypertension: Yes - PULMONARY Hx Chronic Obstructive Pulmonary Disease (COPD): Yes - NEUROLOGICAL Hx Dementia: Yes Hx Parkinson's Disease: Yes - HEENT Hx HEENT Problems: No - RENAL Hx Chronic Kidney Disease: No - ENDOCRINE/METABOLIC Hx Diabetes Mellitus Type 2: Yes - HEMATOLOGICAL/ONCOLOGICAL Hx Anemia: Yes - INTEGUMENTARY Hx Dermatological Problems: No - MUSCULOSKELETAL/RHEUMATOLOGICAL Hx Fractures: Yes (left wrist) - GASTROINTESTINAL Hx Gastrointestinal Disorders: Yes Hx Ulcer: Yes - GENITOURINARY/GYNECOLOGICAL Hx Genitourinary Disorders: Yes Hx Incontinence: Yes - PSYCHIATRIC Hx Substance Use: No - SURGICAL HISTORY Hx Surgeries: Yes Other/Comment: Colonoscopy - ANESTHESIA Hx Anesthesia: Yes Hx Anesthesia Reactions: No Hx Malignant Hyperthermia: No Meds Allergies/Adverse Reactions: Allergies Allergy/AdvReac Type Severity Reaction Status Date / Time No Known Allergies Allergy Verified 06/14/17 13:10 - Medications Medications: Current Medications Donepezil HCl (Aricept) 10 mg PO HS [facility] Enoxaparin Sodium (Lovenox) 40 mg SC DAILY [facility] Ferrous Sulfate (Feosol) 325 mg PO BID [facility] Potassium Chloride/Dextrose/Sod Cl (Potassium Chl 20 Meq In D5-1/2ns) 1,000 mls @ 75 mls/hr IV .[id number] [facility] Stop: 06/22/17 21:54 Last Admin: 06/21/17 20:07 Dose: 75 mls/hr Fluconazole (Diflucan Iv 100 Mg/50 Ml Ns) 50 mls @ 100 mls/hr IVPB DAILY [facility] Memantine (Namenda) 10 mg PO DAILY [facility] Oxybutynin Chloride (Ditropan Tab) 5 mg PO TID [facility] Pantoprazole Sodium (Protonix Ec Tab) 40 mg PO DAILY [facility] Physical Exam - Constitutional Appears: Non-toxic, No Acute Distress - Head Exam Head Exam: NORMAL INSPECTION - Eye Exam Eye Exam: EOMI, Normal appearance - ENT Exam ENT Exam: Mucous Membranes Moist - Respiratory Exam Respiratory Exam: Clear to Auscultation Bilateral - Cardiovascular Exam Cardiovascular Exam: REGULAR RHYTHM, +S1, +S2 - GI/Abdominal Exam GI & Abdominal Exam: Normal Bowel Sounds, Soft Additional comments: non tender to palpation in four quadrants no palpable hepato/splenomegaly - Extremities Exam Extremities exam: Positive for: normal inspection - Neurological Exam Additional comments: patient unable to participate in neurological examination - Psychiatric Exam Psychiatric exam: Normal Affect, Normal Mood - Skin Skin Exam: Dry, Intact, Normal Color, Warm Results - Vital Signs Recent Vital Signs: Last Vital Signs Temp 97.8 F 06/21/17 16:16 Pulse 68 06/21/17 20:02 Resp 20 06/21/17 20:02 BP 118/67 06/21/17 20:02 Pulse Ox 96 06/21/17 20:02 - Labs Result Diagrams: 06/21/17 16:03 06/21/17 16:03 Labs: Laboratory Results - last 24 hr 06/21/17 06/21/17 06/21/17 16:03 16:03 16:28 WBC 7.6 RBC 3.95 L Hgb 11.8 L Hct 35.7 MCV 90.4 MCH 29.9 MCHC 33.1 RDW 17.1 H Plt Count 318 MPV 7.4 Neut % (Auto) 73.6 Lymph % (Auto) 14.8 L [place] % (Auto) 9.2 Eos % (Auto) 1.7 Baso % (Auto) 0.7 Neut # 5.6 Lymph # 1.1 [place] # 0.7 Eos # 0.1 Baso # 0.1 Sodium 142 Potassium 3.4 L Chloride 106 Carbon Dioxide 23 Anion Gap 16 BUN 18 Creatinine 0.8 Est GFR ( Amer) > 60 Est GFR (Non-Af Amer) > 60 Random Glucose 61 L Calcium 8.9 Total Bilirubin 0.8 AST 17 ALT 27 Alkaline Phosphatase 75 Troponin I 0.0250 NT-Pro-B Natriuret Pep 129 Total Protein 6.9 Albumin 3.5 Globulin 3.4 Albumin/Globulin Ratio 1.0 Lipase 75 Stool Occult Blood Negative Assessment & Plan - Assessment and Plan (Free Text) Assessment: HTN COPD DM Parkinson's dementia Inability to tolerate PO diet, failure to thrive Plan: - H/H stable, continue to monitor - Full liquid diet as tolerated - Obtain calorie count - Unclear whether patient presentation is due to progressive symptoms of underlying Parkinson's dementia or if there has been an acute change in dietary habits - Obtain formal swallow evaluation - Will need to discuss in detail with patient family members regarding potential risks/benefits of endoscopic gastrostomy tube placement and if this is something that aligns with patient wishes. Will continue to monitor patient clinical course.
[2017-06-21] MEDS: (Novolog) Insulin Aspart, Recombinant 100 u/ml 10 ml vial SC SCH (22:17)
[2017-06-22 07:10] LABS: CHLORIDE 105 mmol/L (98-107)
[2017-06-22 07:11] LABS: POTASSIUM 3.3 mmol/L (3.6-5.2); SODIUM 139 mmol/L (132-148)
[2017-06-22 07:13] LABS: ALB/GLOB RATIO 1.1 (1.0-2.1); AST/SGOT 17 U/L (17-59); BILIRUBIN,TOTAL 0.8 mg/dL (0.2-1.3); CARBON DIOXIDE 21 mmol/L (22-30); GFR AFRICAN-AMERICAN > 60; TOTAL PROTEIN 6.1 g/dL (6.3-8.3)
[2017-06-22 07:14] LABS: ALKALINE PHOSPHATASE 65 U/L (38-126); ALT/SGPT 21 U/L (21-72); BLOOD UREA NITROGEN 15 mg/dL (9-20); CALCIUM 8.1 mg/dl (8.6-10.4); GLUCOSE,RANDOM 70 mg/dL (75-110)
--- NOTE | 2017-06-22 07:37 | CP.PCM.PN ---
Addendum entered and electronically signed by Amarilys Avendaño DO 06/22/17 12:24 : spoke to POA- understands risk vs benefit of PEG placement if failed speech evaluation and poor oral intake - no contraindications to placement, continue calorie count, follow up on speech evaluation - further discussion with POA based on clinical course Original Note: <Amarilys Avendaño - Last Filed: 06/22/17 11:05> Subjective - Date & Time of Evaluation Date of Evaluation: 06/22/17 Time of Evaluation: 07:34 - Subjective Subjective: Gastroenterology Fellow/PGY5 Progress Note Patient is nonverbal. Nursing denies any acute events overnight. Patient remains NPO overnight per nursing. A 12-point review of systems unable to be completed due to nonverbal state. Objective - Vital Signs/Intake and Output Vital Signs (last 24 hours): Temp Pulse Resp BP Pulse Ox 98.3 F 68 20 114/69 96 06/22/17 00:00 06/22/17 00:00 06/22/17 00:00 06/22/17 00:00 06/22/17 00:00 Intake and Output: 06/22/17 06/22/17 06:59 18:59 Intake Total 600 Balance 600 - Medications Medications: Current Medications Donepezil HCl (Aricept) 10 mg PO HS [facility] Last Admin: 06/21/17 22:17 Dose: Not Given Enoxaparin Sodium (Lovenox) 40 mg SC DAILY [facility] Ferrous Sulfate (Feosol) 325 mg PO BID [facility] Potassium Chloride/Dextrose/Sod Cl (Potassium Chl 20 Meq In D5-1/2ns) 1,000 mls @ 75 mls/hr IV .[id number] [facility] Stop: 06/22/17 21:54 Last Admin: 06/21/17 20:07 Dose: 75 mls/hr Fluconazole (Diflucan Iv 100 Mg/50 Ml Ns) 50 mls @ 100 mls/hr IVPB DAILY [facility] Insulin Aspart (Novolog) 0 unit SC ACHS [facility] PRN Reason: Protocol Last Admin: 06/21/17 22:17 Dose: Not Given Memantine (Namenda) 10 mg PO DAILY [facility] Oxybutynin Chloride (Ditropan Tab) 5 mg PO TID [facility] Pantoprazole Sodium (Protonix Ec Tab) 40 mg PO DAILY [facility] Pneumococcal Polyvalent Vaccine (Pneumovax 23 Vaccine) 0.5 ml IM .ONCE ONE Stop: 06/23/17 10:01 - Labs Labs: 06/21/17 16:03 06/22/17 06:53 - Constitutional Appears: Non-toxic, No Acute Distress, Chronically Ill - Head Exam Head Exam: ATRAUMATIC, NORMOCEPHALIC - Eye Exam Eye Exam: EOMI, PERRL Pupil Exam: PERRL. absent: Miosis, Mydriatic - ENT Exam ENT Exam: Mucous Membranes Dry, Normal Oropharynx - Neck Exam Neck Exam: Normal Inspection - Respiratory Exam Respiratory Exam: Clear to Ausculation Bilateral. absent: Rales, Rhonchi, Wheezes - Cardiovascular Exam Cardiovascular Exam: RRR, +S1, +S2. absent: Gallop, Rubs - GI/Abdominal Exam GI & Abdominal Exam: Soft, Normal Bowel Sounds. absent: Distended, Firm, Guarding, Rigid, Tenderness, Organomegaly, Rebound - Extremities Exam Extremities Exam: Normal Inspection. absent: Pedal Edema - Neurological Exam Neurological Exam: Alert, Awake Additional comments: unable to assess orientation - Psychiatric Exam Additional comments: unable to assess due to nonverbal state, dementia/Parkinson's - Skin Skin Exam: Dry, Intact, Normal Color, Warm Assessment and Plan - Assessment and Plan (Free Text) Assessment: 82 year old male with PUD, COPD, Dementia, Parkinson's, Hypertension, Hyperlipidemia, Diabetes, and diverticular bleed s/p transfusions 05/2017 presenting from nursing facility for poor oral intake. Active treatment of failure to thrive due to not swallowing oral intake. Prior EGD and colonoscopy (Dr. Browne) showed nonerosive gastritis, few cecum and transverse polyps , large right sided diverticulosis without active bleeding with large blood and clot throughout colon R>L. Plan: >DDx: Dementia/Parkinson's, failure to thrive >pending swallow evaluation >06/16 speech evaluation- puree, honey thick >calorie count >voicemail left for POA to discuss [facility] care and risk vs benefit of PEG placement if unable to have adequate oral intake to meet nutritional requirements >will follow clinical course <Edel Waldrop MD - Last Filed: 06/22/17 15:58> Objective - Vital Signs/Intake and Output Vital Signs (last 24 hours): Temp Pulse Resp BP Pulse Ox 98.4 F 64 20 149/71 98 06/22/17 09:13 06/22/17 09:13 06/22/17 09:13 06/22/17 09:13 06/22/17 09:13 Intake and Output: 06/22/17 06/22/17 06:59 18:59 Intake Total 1550 Balance 1550 - Medications Medications: Current Medications Donepezil HCl (Aricept) 10 mg PO HS [facility] Last Admin: 06/21/17 22:17 Dose: Not Given Enoxaparin Sodium (Lovenox) 40 mg SC DAILY [facility] Last Admin: 06/22/17 10:10 Dose: 40 mg Ferrous Sulfate (Feosol) 325 mg PO BID [facility] Last Admin: 06/22/17 10:00 Dose: 325 mg Potassium Chloride/Dextrose/Sod Cl (Potassium Chl 20 Meq In D5-1/2ns) 1,000 mls @ 75 mls/hr IV .[id number] [facility] Stop: 06/22/17 21:54 Last Admin: 06/22/17 13:42 Dose: 75 mls/hr Fluconazole (Diflucan Iv 100 Mg/50 Ml Ns) 50 mls @ 100 mls/hr IVPB DAILY [facility] Last Admin: 06/22/17 10:07 Dose: 100 mls/hr Insulin Aspart (Novolog) 0 unit SC ACHS [facility] PRN Reason: Protocol Last Admin: 06/22/17 11:56 Dose: Not Given Memantine (Namenda) 10 mg PO DAILY [facility] Last Admin: 06/22/17 10:10 Dose: 10 mg Oxybutynin Chloride (Ditropan Tab) 5 mg PO TID [facility] Last Admin: 06/22/17 13:36 Dose: 5 mg Pantoprazole Sodium (Protonix Ec Tab) 40 mg PO DAILY [facility] Last Admin: 06/22/17 10:10 Dose: 40 mg Pneumococcal Polyvalent Vaccine (Pneumovax 23 Vaccine) 0.5 ml IM .ONCE ONE Stop: 06/23/17 10:01 - Labs Labs: 06/22/17 08:19 06/22/17 06:53 PT 14.2 SECONDS (9.7-12.2) H 06/22/17 08:19 INR 1.2 06/22/17 08:19 Attending/Attestation - Attestation I have personally seen and examined this patient.: Yes I have fully participated in the care of the patient.: Yes I have reviewed all pertinent clinical information, including history, physical exam and plan: Yes Notes (Text): 06/22/17 15:49 Patient seen with GI fellow on rounds. This is a 82 year old male with PUD, COPD , Dementia, Parkinson's, Hypertension, Hyperlipidemia, Diabetes, and diverticular bleed s/p transfusions 05/2017 presenting from nursing facility for poor oral intake and failure to thrive due to not swallowing oral intake. Prior EGD and colonoscopy 06/07/17 (Dr. Browne) showed non erosive gastritis, few cecum and transverse polyps, large right sided diverticulosis without active bleeding with large blood and clot throughout colon R>L. pending speech and swallow and barium esophagogram. To discuss with POA intermodal customer service care and risk vs benefit of PEG placement
[2017-06-22] MEDS: (Novolog) Insulin Aspart, Recombinant 100 u/ml 10 ml vial SC SCH ×4 (07:47→21:53)
[2017-06-22 08:37] LABS: BASO # 0.1 K/uL (0.0-0.2); BASO % 0.8 % (0.0-2.0); EOS # 0.2 K/uL (0.0-0.7); EOS % 2.3 % (0.0-4.0); HEMATOCRIT 34.6 % (35.0-51.0); INR 1.2; LYMPH # 1.2 K/uL (1.0-4.3); LYMPH % 17.1 % (20.0-40.0); MEAN CELL VOLUME 89.6 fL (80.0-94.0); MEAN CORPUSCULAR HEMOGLOBIN 29.9 pg (27.0-31.0); MEAN CORPUSCULAR HGB CONC 33.4 g/dL (33.0-37.0); MEAN PLATELET VOLUME 7.6 fL (7.2-11.7); MONO # 0.8 K/uL (0.0-0.8); MONO % 11.9 % (0.0-10.0); RED CELL DISTRIBUTION WIDTH 17.5 % (11.5-14.5); WHITE BLOOD COUNT 7.1 K/uL (4.8-10.8)
--- NOTE | 2017-06-22 09:27 | CP.PCM.PN ---
<Piotr Sorenson - Last Filed: 06/22/17 15:48> Subjective - Date & Time of Evaluation Date of Evaluation: 06/22/17 Time of Evaluation: 09:24 - Subjective Subjective: PGY-[address] Mike's service: Pt seen and examined at bedside. Nursing reports no acute events overnight. Pt found lying comfortably in bed. Pt with dementia, and unable to provide accurate ROS at this time as patient shakes head "yes" to every question. Patient is an 82 year old male, with PMHx of Parkinson's dementia, COPD, HTN, DM, hyperlipidemia who presented on 06/21 from snf for inability to tolerate PO diet. Patient with history of dementia Recent discharge from [facility] 1 week prior for suspected lower GI bleeding, that was treated conservatively, and discharged after resolution of bleeding. EMR and records from snf show no abdominal pain, nausea, vomiting, fever/chills, weight loss, or rectal bleeding. Recent EGD/colonoscopy last month at [facility] which showed gastritis, colonic polyps, right sided diverticulosis. Objective - Vital Signs/Intake and Output Vital Signs (last 24 hours): Temp Pulse Resp BP Pulse Ox 98.4 F 64 20 149/71 98 06/22/17 09:13 06/22/17 09:13 06/22/17 09:13 06/22/17 09:13 06/22/17 09:13 Intake and Output: 06/22/17 06/22/17 06:59 18:59 Intake Total 600 Balance 600 - Medications Medications: Current Medications Donepezil HCl (Aricept) 10 mg PO HS JESSICA Last Admin: 06/21/17 22:17 Dose: Not Given Enoxaparin Sodium (Lovenox) 40 mg SC DAILY JESSICA Ferrous Sulfate (Feosol) 325 mg PO BID JESSICA Potassium Chloride/Dextrose/Sod Cl (Potassium Chl 20 Meq In D5-1/2ns) 1,000 mls @ 75 mls/hr IV .[id number] JESSICA Stop: 06/22/17 21:54 Last Admin: 06/21/17 20:07 Dose: 75 mls/hr Fluconazole (Diflucan Iv 100 Mg/50 Ml Ns) 50 mls @ 100 mls/hr IVPB DAILY JESSICA Potassium Chloride (Potassium Chloride 10 Meq/100 Ml) 10 meq in 100 mls @ 100 mls/hr IVPB Q2 JESSICA Stop: 06/22/17 12:59 Insulin Aspart (Novolog) 0 unit SC ACHS JESSICA PRN Reason: Protocol Last Admin: 06/22/17 07:47 Dose: Not Given Memantine (Namenda) 10 mg PO DAILY [facility] Oxybutynin Chloride (Ditropan Tab) 5 mg PO TID [facility] Pantoprazole Sodium (Protonix Ec Tab) 40 mg PO DAILY [facility] Pneumococcal Polyvalent Vaccine (Pneumovax 23 Vaccine) 0.5 ml IM .ONCE ONE Stop: 06/23/17 10:01 - Labs Labs: 06/22/17 08:19 06/22/17 06:53 PT 14.2 SECONDS (9.7-12.2) H 06/22/17 08:19 INR 1.2 06/22/17 08:19 - Constitutional Appears: Non-toxic, No Acute Distress - Head Exam Head Exam: ATRAUMATIC, NORMAL INSPECTION, NORMOCEPHALIC - Eye Exam Eye Exam: EOMI, Normal appearance - ENT Exam ENT Exam: Mucous Membranes Moist - Respiratory Exam Respiratory Exam: Clear to Ausculation Bilateral, NORMAL BREATHING PATTERN. absent: Rales, Rhonchi, Wheezes - Cardiovascular Exam Cardiovascular Exam: REGULAR RHYTHM, +S1, +S2 - GI/Abdominal Exam GI & Abdominal Exam: Soft, Normal Bowel Sounds. absent: Tenderness Additional comments: Negative rovsing/Stephenson signs No distention No organomegaly - Extremities Exam Extremities Exam: Normal Inspection. absent: Pedal Edema, Tenderness - Neurological Exam Neurological Exam: Alert, Altered, Awake. absent: Oriented x3 - Psychiatric Exam Psychiatric exam: Normal Affect, Normal Mood - Skin Skin Exam: Normal Color, Warm Assessment and Plan - Assessment and Plan (Free Text) Plan: Inability to swallow Resident of skilled nursing - admit on 06/21; recent discharge from [facility] for suspected GI bleed CXR on admission (06/21): RAIN Talbert, GI consult: help appreciated - recent EGD/Colonoscopy @ [facility]: gastritis, colon polyps, right sided diverticulosis - speech eval (06/22): Pt takes 20-30 secs to swallow (typical of Parkinson's pt) . No coughing; voice clear after swallowing. CXR clear with no signs of aspiration. Recommend puree solid, honey thick diet and education of snf for proper feeding. Consider PEG and pleasure feeds if POA prefers. - eval for possible PEG placement - liquid diet, calorie count Diflucan IV Hx of GI bleed Hgb stable this AM (11.6 - in line with previous admission) - recent EGD/Colonoscopy @ [facility]: gastritis, colon polyps, right sided diverticulosis Dementia/Parkinson's Disease Aricept 10 mg PO HS Namenda 10mg PO Daily HTN well-controlled since admission Anemia Hgb stable this AM Feosol 325mg PO BID Hypokalemia 3.3 on AM labs, repleted IV Type Two Diabetes Mellitus Accuchecks ISS f/u A1c, lipid panel, tsh Bedbound patient f/u PT eval Prophylaxis Lovenox 40mg SC Daily Protonix 40mg PO Daily SCDs Piotr Sorenson PGY-2 All medical management per Dr. Russell Mike <Lluvia Mike - Last Filed: 06/22/17 23:06> Objective - Vital Signs/Intake and Output Vital Signs (last 24 hours): Temp Pulse Resp BP Pulse Ox 97.7 F 63 20 129/73 96 06/22/17 15:00 06/22/17 15:00 06/22/17 15:00 06/22/17 15:00 06/22/17 15:00 Intake and Output: 06/22/17 06/23/17 18:59 06:59 Intake Total 1550 200 Balance 1550 200 - Medications Medications: Current Medications Donepezil HCl (Aricept) 10 mg PO [facility] Last Admin: 06/22/17 21:33 Dose: 10 mg Enoxaparin Sodium (Lovenox) 40 mg SC DAILY [facility] Last Admin: 06/22/17 10:10 Dose: 40 mg Ferrous Sulfate (Feosol) 325 mg PO BID [facility] Last Admin: 06/22/17 18:19 Dose: 325 mg Fluconazole (Diflucan Iv 100 Mg/50 Ml Ns) 50 mls @ 100 mls/hr IVPB DAILY [facility] Last Admin: 06/22/17 10:07 Dose: 100 mls/hr Potassium Chloride (Potassium Chloride 20 Meq/100 Ml) 20 meq in 100 mls @ 50 mls/hr IVPB ONCE ONE Stop: 06/23/17 00:51 Last Admin: 06/22/17 23:01 Dose: 50 mls/hr Insulin Aspart (Novolog) 0 unit SC ACHS [facility] PRN Reason: Protocol Last Admin: 06/22/17 21:53 Dose: Not Given Memantine (Namenda) 10 mg PO DAILY [facility] Last Admin: 06/22/17 10:10 Dose: 10 mg Oxybutynin Chloride (Ditropan Tab) 5 mg PO TID [facility] Last Admin: 06/22/17 18:17 Dose: 5 mg Pantoprazole Sodium (Protonix Ec Tab) 40 mg PO DAILY [facility] Last Admin: 06/22/17 10:10 Dose: 40 mg Pneumococcal Polyvalent Vaccine (Pneumovax 23 Vaccine) 0.5 ml IM .ONCE ONE Stop: 06/23/17 10:01 - Labs Labs: 06/22/17 08:19 06/22/17 06:53 PT 14.2 SECONDS (9.7-12.2) H 06/22/17 08:19 INR 1.2 06/22/17 08:19 Attending/Attestation - Attestation I have personally seen and examined this patient.: Yes I have fully participated in the care of the patient.: Yes I have reviewed all pertinent clinical information, including history, physical exam and plan: Yes Notes (Text): 06/22/17 23:06 Casein and discussed with the staff and resident possible PEG tube as patient is unable to eat started on Diflucan patient had endoscopy done last month [facility] which showed gastritis polyp and diverticulosis patient' s hemoglobin continues to remain stable potassium is 3.3 potassium supplemented casein and discussed with the staff and resident
[2017-06-22] MEDS: Fluconazole IV 100mg/50 ml NS 50 ML IVPB SCH (10:07)
[2017-06-22] MEDS: Pantoprazole 40 mg EC Tab PO SCH (10:10)
[2017-06-22] MEDS: Enoxaparin 40 mg Syringe SC SCH (10:10)
[2017-06-22] MEDS: Potassium Ch 20mEq in D5-1/2NS 1,000 ML IV SCH (13:42)
--- NOTE | 2017-06-22 15:42 | CP.PCM.HP ---
Past Patient History - Infectious Disease Hx of Infectious Diseases: None - Tetanus Immunizations Tetanus Immunization: Unknown - Past Medical History & Family History Past Medical History?: Yes - Past Social History Smoking Status: Never Smoked - CARDIAC Hx Hypercholesterolemia: Yes Hx Hypertension: Yes - PULMONARY Hx Chronic Obstructive Pulmonary Disease (COPD): Yes - NEUROLOGICAL Hx Dementia: Yes Hx Parkinson's Disease: Yes - HEENT Hx HEENT Problems: No - RENAL Hx Chronic Kidney Disease: No - ENDOCRINE/METABOLIC Hx Diabetes Mellitus Type 2: Yes - HEMATOLOGICAL/ONCOLOGICAL Hx Anemia: Yes - INTEGUMENTARY Hx Dermatological Problems: No - MUSCULOSKELETAL/RHEUMATOLOGICAL Hx Fractures: Yes (left wrist) - GASTROINTESTINAL Hx Gastrointestinal Disorders: Yes Hx Ulcer: Yes - GENITOURINARY/GYNECOLOGICAL Hx Genitourinary Disorders: Yes Hx Incontinence: Yes - PSYCHIATRIC Hx Substance Use: No - SURGICAL HISTORY Hx Surgeries: Yes Other/Comment: Colonoscopy - ANESTHESIA Hx Anesthesia: Yes Hx Anesthesia Reactions: No Hx Malignant Hyperthermia: No Meds Allergies/Adverse Reactions: Allergies Allergy/AdvReac Type Severity Reaction Status Date / Time No Known Allergies Allergy Verified 06/14/17 13:10 Physical Exam - Constitutional Appears: Well - Head Exam Head Exam: ATRAUMATIC, NORMAL INSPECTION, NORMOCEPHALIC - Eye Exam Eye Exam: EOMI, Normal appearance, PERRL Pupil Exam: NORMAL ACCOMODATION, PERRL - ENT Exam ENT Exam: Mucous Membranes Moist, Normal Exam - Neck Exam Neck exam: Positive for: Normal Inspection - Respiratory Exam Respiratory Exam: Decreased Breath Sounds - Cardiovascular Exam Cardiovascular Exam: REGULAR RHYTHM, +S1, +S2 - GI/Abdominal Exam GI & Abdominal Exam: Diminished Bowel Sounds, Soft - Rectal Exam Rectal Exam: Deferred Results - Vital Signs Recent Vital Signs: Last Vital Signs Temp 98.4 F 06/22/17 09:13 Pulse 64 06/22/17 09:13 Resp 20 06/22/17 09:13 BP 149/71 06/22/17 09:13 Pulse Ox 98 06/22/17 09:13 - Labs Result Diagrams: 06/22/17 08:19 06/22/17 06:53 Labs: Laboratory Results - last 24 hr 06/21/17 06/21/17 06/21/17 16:03 16:03 16:28 WBC 7.6 RBC 3.95 L Hgb 11.8 L Hct 35.7 MCV 90.4 MCH 29.9 MCHC 33.1 RDW 17.1 H Plt Count 318 MPV 7.4 Neut % (Auto) 73.6 Lymph % (Auto) 14.8 L Borden % (Auto) 9.2 Eos % (Auto) 1.7 Baso % (Auto) 0.7 Neut # 5.6 Lymph # 1.1 Borden # 0.7 Eos # 0.1 Baso # 0.1 PT INR Sodium 142 Potassium 3.4 L Chloride 106 Carbon Dioxide 23 Anion Gap 16 BUN 18 Creatinine 0.8 Est GFR ( Amer) > 60 Est GFR (Non-Af Amer) > 60 POC Glucose (mg/dL) Random Glucose 61 L Calcium 8.9 Total Bilirubin 0.8 AST 17 ALT 27 Alkaline Phosphatase 75 Troponin I 0.0250 NT-Pro-B Natriuret Pep 129 Total Protein 6.9 Albumin 3.5 Globulin 3.4 Albumin/Globulin Ratio 1.0 Lipase 75 Stool Occult Blood Negative 06/21/17 06/22/17 06/22/17 21:45 06:53 07:05 WBC RBC Hgb Hct MCV MCH MCHC RDW Plt Count MPV Neut % (Auto) Lymph % (Auto) Borden % (Auto) Eos % (Auto) Baso % (Auto) Neut # Lymph # Borden # Eos # Baso # PT INR Sodium 139 Potassium 3.3 L Chloride 105 Carbon Dioxide 21 L Anion Gap 16 BUN 15 Creatinine 0.7 L Est GFR ( Amer) > 60 Est GFR (Non-Af Amer) > 60 POC Glucose (mg/dL) 74 87 Random Glucose 70 L Calcium 8.1 L Total Bilirubin 0.8 AST 17 ALT 21 D Alkaline Phosphatase 65 Troponin I NT-Pro-B Natriuret Pep Total Protein 6.1 L Albumin 3.2 L Globulin 2.9 Albumin/Globulin Ratio 1.1 Lipase Stool Occult Blood 06/22/17 06/22/17 06/22/17 08:19 08:19 11:04 WBC 7.1 RBC 3.86 L Hgb 11.6 L Hct 34.6 L MCV 89.6 MCH 29.9 MCHC 33.4 RDW 17.5 H Plt Count 300 MPV 7.6 Neut % (Auto) 67.9 Lymph % (Auto) 17.1 L Borden % (Auto) 11.9 H Eos % (Auto) 2.3 Baso % (Auto) 0.8 Neut # 4.8 Lymph # 1.2 Borden # 0.8 Eos # 0.2 Baso # 0.1 PT 14.2 H INR 1.2 Sodium Potassium Chloride Carbon Dioxide Anion Gap BUN Creatinine Est GFR ( Amer) Est GFR (Non-Af Amer) POC Glucose (mg/dL) 91 Random Glucose Calcium Total Bilirubin AST ALT Alkaline Phosphatase Troponin I NT-Pro-B Natriuret Pep Total Protein Albumin Globulin Albumin/Globulin Ratio Lipase Stool Occult Blood Assessment & Plan - Assessment and Plan (Free Text) Plan: case seen and discussed with the staff and resident possible PEG tube as patient is unable to eat started on Diflucan patient had endoscopy done last month endoscopy at the [facility] which showed gastritis polyp and diverticulosis patient's hemoglobin continues to remain stable potassium is 3.3 potassium supplemented casein and discussed with the staff and resident
--- NOTE | 2017-06-22 21:37 | CARD ---
APPROVED REPORT EKG Measurement Heart [id number] <Conclusion> Normal sinus rhythm Possible Left atrial enlargement Left axis deviation Right bundle branch block Left ventricular hypertrophy Cannot rule out Septal infarct, age undetermined Abnormal ECG
[2017-06-23 06:44] LABS: CHLORIDE 102 mmol/L (98-107)
[2017-06-23 06:45] LABS: POTASSIUM 3.2 mmol/L (3.6-5.2); SODIUM 140 mmol/L (132-148)
[2017-06-23 06:47] LABS: BASO % 0.6 % (0.0-2.0); CHOLESTEROL 101 mg/dL (0-199); EOS # 0.2 K/uL (0.0-0.7); EOS % 3.1 % (0.0-4.0); HEMATOCRIT 33.9 % (35.0-51.0); LYMPH # 1.4 K/uL (1.0-4.3); LYMPH % 23.2 % (20.0-40.0); MEAN CELL VOLUME 89.1 fL (80.0-94.0); MEAN CORPUSCULAR HEMOGLOBIN 30.4 pg (27.0-31.0); MEAN CORPUSCULAR HGB CONC 34.1 g/dL (33.0-37.0); MEAN PLATELET VOLUME 7.7 fL (7.2-11.7); MONO # 0.7 K/uL (0.0-0.8); MONO % 11.9 % (0.0-10.0); NRBC % 0.1 % (0.0-2.0); RED CELL DISTRIBUTION WIDTH 17.1 % (11.5-14.5)
[2017-06-23 06:48] LABS: ALKALINE PHOSPHATASE 67 U/L (38-126); ALT/SGPT 27 U/L (21-72); AST/SGOT 17 U/L (17-59); BILIRUBIN,TOTAL 0.7 mg/dL (0.2-1.3); BLOOD UREA NITROGEN 6 mg/dL (9-20); CARBON DIOXIDE 26 mmol/L (22-30); GFR AFRICAN-AMERICAN > 60; GLUCOSE,RANDOM 75 mg/dL (75-110); TOTAL PROTEIN 6.1 g/dL (6.3-8.3)
[2017-06-23 06:49] LABS: CALCIUM 8.4 mg/dl (8.6-10.4); MAGNESIUM 1.4 mg/dL (1.6-2.3); PHOSPHOROUS 2.4 mg/dL (2.5-4.5)
[2017-06-23 07:19] LABS: THYROID STIMULATING HORMONE 2.25 mIU/L (0.46-4.68)
[2017-06-23] MEDS: (Novolog) Insulin Aspart, Recombinant 100 u/ml 10 ml vial SC SCH ×3 (07:43→17:43)
[2017-06-23] MEDS ORDERED: Potassium Ch 20mEq in D5-1/2NS 1,000 ML IV SCH (08:00)
--- NOTE | 2017-06-23 09:32 | CP.PCM.PN ---
<Amarilys Avendaño - Last Filed: 06/23/17 09:28> Subjective - Date & Time of Evaluation Date of Evaluation: 06/23/17 Time of Evaluation: 09:29 - Subjective Subjective: Gastroenterology Fellow/PGY5 Progress Note Patient is nonverbal. Nods head to show he is comfortable. Denies abdominal pain by shaking head "no". Nursing denies any acute events overnight. A 12- point review of systems unable to be completed due to nonverbal state. Objective - Vital Signs/Intake and Output Vital Signs (last 24 hours): Temp Pulse Resp BP Pulse Ox 98 F 63 20 110/67 96 06/23/17 08:00 06/23/17 08:00 06/23/17 08:00 06/23/17 08:00 06/23/17 08:00 Intake and Output: 06/23/17 06/23/17 06:59 18:59 Intake Total 500 Balance 500 - Medications Medications: Current Medications Donepezil HCl (Aricept) 10 mg PO HS [facility] Last Admin: 06/22/17 21:33 Dose: 10 mg Enoxaparin Sodium (Lovenox) 40 mg SC DAILY [facility] Last Admin: 06/22/17 10:10 Dose: 40 mg Ferrous Sulfate (Feosol) 325 mg PO BID [facility] Last Admin: 06/22/17 18:19 Dose: 325 mg Fluconazole (Diflucan Iv 100 Mg/50 Ml Ns) 50 mls @ 100 mls/hr IVPB DAILY [facility] Last Admin: 06/22/17 10:07 Dose: 100 mls/hr Potassium Chloride/Dextrose/Sod Cl (Potassium Chl 20 Meq In D5-1/2ns) 1,000 mls @ 60 mls/hr IV .[id number] [facility] Last Admin: 06/23/17 08:30 Dose: 60 mls/hr Insulin Aspart (Novolog) 0 unit SC ACHS [facility] PRN Reason: Protocol Last Admin: 06/23/17 07:43 Dose: Not Given Memantine (Namenda) 10 mg PO DAILY [facility] Last Admin: 06/22/17 10:10 Dose: 10 mg Oxybutynin Chloride (Ditropan Tab) 5 mg PO TID [facility] Last Admin: 06/22/17 18:17 Dose: 5 mg Pantoprazole Sodium (Protonix Ec Tab) 40 mg PO DAILY [facility] Last Admin: 06/22/17 10:10 Dose: 40 mg Pneumococcal Polyvalent Vaccine (Pneumovax 23 Vaccine) 0.5 ml IM .ONCE ONE Stop: 06/23/17 10:01 - Labs Labs: 06/23/17 06:25 06/23/17 06:25 PT 14.2 SECONDS (9.7-12.2) H 06/22/17 08:19 INR 1.2 06/22/17 08:19 - Constitutional Appears: Non-toxic, No Acute Distress - Head Exam Head Exam: ATRAUMATIC, NORMOCEPHALIC - Eye Exam Eye Exam: EOMI, PERRL Pupil Exam: PERRL. absent: Miosis, Mydriatic - ENT Exam ENT Exam: Mucous Membranes Moist, Normal Oropharynx - Neck Exam Neck Exam: Full ROM, Normal Inspection - Respiratory Exam Respiratory Exam: Clear to Ausculation Bilateral. absent: Rales, Rhonchi, Wheezes - Cardiovascular Exam Cardiovascular Exam: RRR, +S1, +S2. absent: Gallop, Rubs - GI/Abdominal Exam GI & Abdominal Exam: Soft, Normal Bowel Sounds. absent: Distended, Firm, Guarding, Rigid, Tenderness, Organomegaly, Rebound - Extremities Exam Extremities Exam: Normal Inspection. absent: Pedal Edema - Neurological Exam Neurological Exam: Alert, Awake - Psychiatric Exam Additional comments: unable to assess - nonverbal - Skin Skin Exam: Dry, Intact, Normal Color, Warm Assessment and Plan - Assessment and Plan (Free Text) Assessment: 82 year old male with history of PUD, COPD, Dementia, Parkinson's, Hypertension , Hyperlipidemia, Diabetes, and diverticular bleed s/p transfusions 05/2017 presenting from nursing facility for poor oral intake. Active treatment of failure to thrive due to poor oral intake. Prior EGD and colonoscopy 06/07/17 ( [facility]) showed nonerosive gastritis, few cecum and transverse polyps, large right sided diverticulosis without active bleeding and large blood with clots throughout colon (R>L). Plan: >Delayed swallowing confirmed by speech pathologist, no aspiration >likely affected by advanced age, dementia, parkinson's >continue puree diet, nectar thick >continue calorie count >consumed 25% of all meals yesterday >will continue calorie count today, continue 1:1 assisted feeds >monitor calorie count,will discuss PEG placement if signs of insufficient oral intake for nutritional requirements >10/10 left voicemail for POA to discuss plan fo rtoday >06/22 POA agrees to consideration of PEG if oral intake does not improve >will follow clinical course <Ferdinand Talbert - Last Filed: 06/23/17 14:33> Objective - Vital Signs/Intake and Output Vital Signs (last 24 hours): Temp Pulse Resp BP Pulse Ox 98 F 63 20 110/67 96 06/23/17 08:00 06/23/17 08:00 06/23/17 08:00 06/23/17 08:00 06/23/17 08:00 Intake and Output: 06/23/17 06/23/17 06:59 18:59 Intake Total 500 Balance 500 - Medications Medications: Current Medications Donepezil HCl (Aricept) 10 mg PO HS [facility] Last Admin: 06/22/17 21:33 Dose: 10 mg Enoxaparin Sodium (Lovenox) 40 mg SC DAILY [facility] Last Admin: 06/23/17 10:40 Dose: Not Given Ferrous Sulfate (Feosol) 325 mg PO BID [facility] Last Admin: 06/23/17 10:17 Dose: Not Given Fluconazole (Diflucan Iv 100 Mg/50 Ml Ns) 50 mls @ 100 mls/hr IVPB DAILY [facility] Last Admin: 06/23/17 10:39 Dose: 100 mls/hr Potassium Chloride/Dextrose/Sod Cl (Potassium Chl 20 Meq In D5-1/2ns) 1,000 mls @ 60 mls/hr IV .[id number] [facility] Last Admin: 06/23/17 08:30 Dose: 60 mls/hr Insulin Aspart (Novolog) 0 unit SC ACHS [facility] PRN Reason: Protocol Last Admin: 06/23/17 11:59 Dose: Not Given Memantine (Namenda) 10 mg PO DAILY [facility] Last Admin: 06/23/17 10:17 Dose: Not Given Oxybutynin Chloride (Ditropan Tab) 5 mg PO TID [facility] Last Admin: 06/23/17 13:50 Dose: Not Given Pantoprazole Sodium (Protonix Ec Tab) 40 mg PO DAILY [facility] Last Admin: 06/23/17 10:17 Dose: Not Given - Labs Labs: 06/23/17 06:25 06/23/17 06:25 PT 14.2 SECONDS (9.7-12.2) H 06/22/17 08:19 INR 1.2 06/22/17 08:19 Attending/Attestation - Attestation I have personally seen and examined this patient.: Yes I have fully participated in the care of the patient.: Yes I have reviewed all pertinent clinical information, including history, physical exam and plan: Yes Notes (Text): 06/23/17 14:30 I have seen and examined patient with GI fellow. No acute events overnight. He is seen resting in bed comfortably. According to nursing notes, patient was able to complete nearly 25% of meals yesterday with assistance and encouragement. No reported abdominal pain, nausea, vomiting. Review of vitals from today are normal. COPD Parkinson's dementia HTN / DM Failure to thrive, poor oral intake - Diet as tolerated, appreciate swallow evaluation - Continue with calorie count - Will continue to monitor patient clinical course. If non adequate caloric intake is noted over next 24-48 hours, would consider gastrostomy placement for ongoing nutritional support.
[2017-06-23] MEDS ORDERED: Pneumococcal 23-Valent Vaccine IM ONE ×2 (10:00→11:45)
[2017-06-23] MEDS ORDERED: Influenza Vaccine 60 mcg/0.5 mL SYR (4YR UP) IM ONE ×2 (10:00→11:45)
[2017-06-23] MEDS: Pantoprazole 40 mg EC Tab PO SCH (10:17)
--- NOTE | 2017-06-23 10:20 | CP.PCM.PN ---
<Lluvia Mike S - Last Filed: 06/23/17 18:54> Objective - Vital Signs/Intake and Output Vital Signs (last 24 hours): Temp Pulse Resp BP Pulse Ox 97.5 F L 60 18 126/72 95 06/23/17 15:00 06/23/17 15:00 06/23/17 15:00 06/23/17 15:00 06/23/17 15:00 Intake and Output: 06/23/17 06/23/17 06:59 18:59 Intake Total 500 680 Balance 500 680 - Medications Medications: Current Medications Donepezil HCl (Aricept) 10 mg PO HS [facility] Last Admin: 06/22/17 21:33 Dose: 10 mg Enoxaparin Sodium (Lovenox) 40 mg SC DAILY [facility] Last Admin: 06/23/17 10:40 Dose: Not Given Ferrous Sulfate (Feosol) 325 mg PO BID [facility] Last Admin: 06/23/17 17:42 Dose: 325 mg Fluconazole (Diflucan Iv 100 Mg/50 Ml Ns) 50 mls @ 100 mls/hr IVPB DAILY [facility] Last Admin: 06/23/17 10:39 Dose: 100 mls/hr Insulin Aspart (Novolog) 0 unit SC ACHS [facility] PRN Reason: Protocol Last Admin: 06/23/17 17:43 Dose: Not Given Memantine (Namenda) 10 mg PO DAILY [facility] Last Admin: 06/23/17 10:17 Dose: Not Given Oxybutynin Chloride (Ditropan Tab) 5 mg PO TID [facility] Last Admin: 06/23/17 17:42 Dose: 5 mg Pantoprazole Sodium (Protonix Ec Tab) 40 mg PO DAILY [facility] Last Admin: 06/23/17 10:17 Dose: Not Given - Labs Labs: 06/23/17 06:25 06/23/17 06:25 PT 14.2 SECONDS (9.7-12.2) H 06/22/17 08:19 INR 1.2 06/22/17 08:19 Attending/Attestation - Attestation I have personally seen and examined this patient.: Yes I have fully participated in the care of the patient.: Yes I have reviewed all pertinent clinical information, including history, physical exam and plan: Yes Notes (Text): 06/23/17 18:55 Casein and discussed with the staff patient Patient claims he is hungry I just spoke to Kendy who refused to put the patient black patient pockets the foot especially if he does not like as per her family does not want patients to have PEG tube placed will discharge the patient back to the rehab tomorrow <[email or web address] - Last Filed: 06/23/17 20:10> Subjective - Date & Time of Evaluation Date of Evaluation: 06/23/17 Time of Evaluation: 10:11 - Subjective Subjective: PGY-[address] Vigil' service: Pt seen and examined at bedside. Nursing reports patient NPO for possible PEG tube placement today pending POA decision. Spoke with POA who states she would prefer to wait 24-48 hours as suggested by GI team, and gauge whether or not caloric intake is adequate. Per talk with clinical partner who fed patient, he is "pocketing food" and taking "a long time to swallow" and eating only 25% of meals. Pt denies any pain at this time by shaking his head 'no'. Pt shakes head yes when asked if hungry. Nursing reports pt borderline hypoglycemic this AM, with low potassium this AM. Pt NPO for possible PEG, so order given for D5/1/2 NS with KCl supplement. Pts POA is Kendy melton, who can best be reached at [phone], which is her cell phone. This differs from number listed on [employer]. She prefers this number as it is her cell phone. Kendy will fax up copy of DNR/DNI form she signed at half-way. Objective - Vital Signs/Intake and Output Vital Signs (last 24 hours): Temp Pulse Resp BP Pulse Ox 98 F 63 20 110/67 96 06/23/17 08:00 06/23/17 08:00 06/23/17 08:00 06/23/17 08:00 06/23/17 08:00 Intake and Output: 06/23/17 06/23/17 06:59 18:59 Intake Total 500 Balance 500 - Medications Medications: Current Medications Donepezil HCl (Aricept) 10 mg PO HS [facility] Last Admin: 06/22/17 21:33 Dose: 10 mg Enoxaparin Sodium (Lovenox) 40 mg SC DAILY [facility] Last Admin: 06/22/17 10:10 Dose: 40 mg Ferrous Sulfate (Feosol) 325 mg PO BID [facility] Last Admin: 06/22/17 18:19 Dose: 325 mg Fluconazole (Diflucan Iv 100 Mg/50 Ml Ns) 50 mls @ 100 mls/hr IVPB DAILY [facility] Last Admin: 06/22/17 10:07 Dose: 100 mls/hr Potassium Chloride/Dextrose/Sod Cl (Potassium Chl 20 Meq In D5-1/2ns) 1,000 mls @ 60 mls/hr IV .[id number] [facility] Last Admin: 06/23/17 08:30 Dose: 60 mls/hr Insulin Aspart (Novolog) 0 unit SC ACHS [facility] PRN Reason: Protocol Last Admin: 06/23/17 07:43 Dose: Not Given Memantine (Namenda) 10 mg PO DAILY [facility] Last Admin: 06/22/17 10:10 Dose: 10 mg Oxybutynin Chloride (Ditropan Tab) 5 mg PO TID [facility] Last Admin: 06/22/17 18:17 Dose: 5 mg Pantoprazole Sodium (Protonix Ec Tab) 40 mg PO DAILY [facility] Last Admin: 06/22/17 10:10 Dose: 40 mg - Labs Labs: 06/23/17 06:25 06/23/17 06:25 PT 14.2 SECONDS (9.7-12.2) H 06/22/17 08:19 INR 1.2 06/22/17 08:19 - Additional Findings Additional findings: - Constitutional Appears: Non-toxic, No Acute Distress - Head Exam Head Exam: ATRAUMATIC, NORMAL INSPECTION, NORMOCEPHALIC - Eye Exam Eye Exam: EOMI, Normal appearance - ENT Exam ENT Exam: Mucous Membranes Moist - Respiratory Exam Respiratory Exam: Clear to Ausculation Bilateral, NORMAL BREATHING PATTERN. absent: Rales, Rhonchi, Wheezes - Cardiovascular Exam Cardiovascular Exam: REGULAR RHYTHM, +S1, +S2 - GI/Abdominal Exam GI & Abdominal Exam: Soft, Normal Bowel Sounds. absent: Tenderness Additional comments: No tenderness to palpation in 4 quadrants No distention - Extremities Exam Extremities Exam: Normal Inspection. absent: Pedal Edema, Tenderness - Neurological Exam Neurological Exam: Alert, Altered, Awake. absent: Oriented x3 - difficult to assess as pt non-verbal - Psychiatric Exam Psychiatric exam: Normal Affect, Normal Mood - Skin Skin Exam: Normal Color, Warm Assessment and Plan - Assessment and Plan (Free Text) Plan: Inability to swallow Resident of [facility] - admit on 06/21; recent discharge from [facility] [place] for suspected GI bleed CXR on admission (06/21): RAIN Talbert, GI consult: help appreciated - [place] [facility] [place], colon polyps, right sided diverticulosis - speech eval (06/22): Pt takes 20-30 secs to swallow (typical of Parkinson's pt) . No coughing; voice clear after swallowing. CXR clear with no signs of aspiration. Recommend puree solid, nectar thick diet and education of half-way for proper feeding. Consider PEG and pleasure feeds if POA prefers. - pt consumed 25% of meals yesterday, PEG placement option if POA agrees Diflucan IV Hx of GI bleed Hgb stable this AM (11.6 - in line with previous admission) - recent [place] [facility] [place] gastritis, colon polyps, right sided diverticulosis Dementia/Parkinson's Disease Aricept 10 mg PO HS Namenda 10mg PO Daily HTN well-controlled since admission Anemia Hgb stable this AM Feosol 325mg PO BID Hypokalemia 3.2 on AM labs, repleted IV - D5/1/2 NS with KCL supplement Hypomagnesemia 1.4 on AM labs, repleted Type Two Diabetes Mellitus Accuchecks ISS A1c: 4.5 Lipid panel: WNL TSH: WNL Bedbound patient PT eval: debility, severe limitation of function; impaired adls and transfers Prophylaxis Lovenox 40mg SC Daily Protonix 40mg PO Daily [facility] Piotr Sorenson PGY-2 All medical management per Dr. Russell Mike
[2017-06-23] MEDS: Fluconazole IV 100mg/50 ml NS 50 ML IVPB SCH (10:39)
[2017-06-23] MEDS: Enoxaparin 40 mg Syringe SC SCH (10:40)
[2017-06-23] MEDS: Magnesium Sulfate 1 gm in D5W 1 GM/100 ML BAG IVPB SCH ×2 (11:57→13:00)
--- NOTE | 2017-06-23 14:57 | CP.PCM.CON ---
History of Present Illness - History of Present Illness History of Present Illness: Palliative consult Requested by Russell Mike MD Reason: Goals of care discussion Patient is a 82 yo AA admitted from [place] with decreased appetite and pocketing the food and meds in his mouth. Upon admission his blood sugar was 70. CXR negative acute findings. The bed side swallow eval suggested no difficulties swallowing the food. Patient consumes about 20% of offered food. PEG is an posible option and needs to be elaborated upon it. PMH: HTN, dementia, COPD, Parkinson's , nonverbal Soc. Hx: [place] resident, geronimo Larry is a [facility] Fam. Hx: unable to obtain due to AMS Review of Systems - Review of Systems All systems: reviewed and no additional remarkable complaints except Review of Systems: ROS obtained from nursing. No acute events over night Past Patient History - Infectious Disease Hx of Infectious Diseases: None - Tetanus Immunizations Tetanus Immunization: Unknown - Past Medical History & Family History Past Medical History?: Yes - Past Social History Smoking Status: Never Smoked - CARDIAC Hx Hypercholesterolemia: Yes Hx Hypertension: Yes - PULMONARY Hx Chronic Obstructive Pulmonary Disease (COPD): Yes - NEUROLOGICAL Hx Dementia: Yes Hx Parkinson's Disease: Yes - HEENT Hx HEENT Problems: No - RENAL Hx Chronic Kidney Disease: No - ENDOCRINE/METABOLIC Hx Diabetes Mellitus Type 2: Yes - HEMATOLOGICAL/ONCOLOGICAL Hx Anemia: Yes - INTEGUMENTARY Hx Dermatological Problems: No - MUSCULOSKELETAL/RHEUMATOLOGICAL Hx Fractures: Yes (left wrist) - GASTROINTESTINAL Hx Gastrointestinal Disorders: Yes Hx Ulcer: Yes - GENITOURINARY/GYNECOLOGICAL Hx Genitourinary Disorders: Yes Hx Incontinence: Yes - PSYCHIATRIC Hx Substance Use: No - SURGICAL HISTORY Hx Surgeries: Yes Other/Comment: Colonoscopy - ANESTHESIA Hx Anesthesia: Yes Hx Anesthesia Reactions: No Hx Malignant Hyperthermia: No Meds Allergies/Adverse Reactions: Allergies Allergy/AdvReac Type Severity Reaction Status Date / Time No Known Allergies Allergy Verified 06/14/17 13:10 - Medications Medications: Current Medications Donepezil HCl (Aricept) 10 mg PO HS [facility] Last Admin: 06/22/17 21:33 Dose: 10 mg Enoxaparin Sodium (Lovenox) 40 mg SC DAILY [facility] Last Admin: 06/23/17 10:40 Dose: Not Given Ferrous Sulfate (Feosol) 325 mg PO BID [facility] Last Admin: 06/23/17 10:17 Dose: Not Given Fluconazole (Diflucan Iv 100 Mg/50 Ml Ns) 50 mls @ 100 mls/hr IVPB DAILY [facility] Last Admin: 06/23/17 10:39 Dose: 100 mls/hr Potassium Chloride/Dextrose/Sod Cl (Potassium Chl 20 Meq In D5-1/2ns) 1,000 mls @ 60 mls/hr IV .[id number] [facility] Last Admin: 06/23/17 08:30 Dose: 60 mls/hr Insulin Aspart (Novolog) 0 unit SC ACHS [facility] PRN Reason: Protocol Last Admin: 06/23/17 11:59 Dose: Not Given Memantine (Namenda) 10 mg PO DAILY [facility] Last Admin: 06/23/17 10:17 Dose: Not Given Oxybutynin Chloride (Ditropan Tab) 5 mg PO TID [facility] Last Admin: 06/23/17 13:50 Dose: Not Given Pantoprazole Sodium (Protonix Ec Tab) 40 mg PO DAILY [facility] Last Admin: 06/23/17 10:17 Dose: Not Given Physical Exam - Constitutional Appears: No Acute Distress - Head Exam Head Exam: ATRAUMATIC, NORMAL INSPECTION, NORMOCEPHALIC - Eye Exam Eye Exam: EOMI, Normal appearance, Nystagmus, PERRL Pupil Exam: NORMAL ACCOMODATION, PERRL - ENT Exam ENT Exam: Mucous Membranes Moist, Normal Exam - Neck Exam Neck exam: Positive for: Normal Inspection - Respiratory Exam Respiratory Exam: Clear to Auscultation Bilateral, NORMAL BREATHING PATTERN - Cardiovascular Exam Cardiovascular Exam: REGULAR RHYTHM - GI/Abdominal Exam GI & Abdominal Exam: Normal Bowel Sounds, Soft - Rectal Exam Rectal Exam: Deferred - Exam Exam: NORMAL INSPECTION - Extremities Exam Extremities exam: Positive for: normal inspection - Back Exam Back exam: NORMAL INSPECTION - Neurological Exam Neurological exam: Alert, Altered - Psychiatric Exam Psychiatric exam: Flat Affect - Skin Skin Exam: Dry, Intact, Normal Color, Warm Results - Vital Signs Recent Vital Signs: Last Vital Signs Temp 98 F 06/23/17 08:00 Pulse 63 06/23/17 08:00 Resp 20 06/23/17 08:00 BP 110/67 06/23/17 08:00 Pulse Ox 96 06/23/17 08:00 - Labs Result Diagrams: 06/23/17 06:25 06/23/17 06:25 Labs: Laboratory Results - last 24 hr 06/22/17 06/22/17 06/23/17 16:26 21:51 06:25 WBC 6.0 RBC 3.81 L Hgb 11.6 L Hct 33.9 L MCV 89.1 MCH 30.4 MCHC 34.1 RDW 17.1 H Plt Count 273 MPV 7.7 Neut % (Auto) 61.2 Lymph % (Auto) 23.2 [place] % (Auto) 11.9 H Eos % (Auto) 3.1 Baso % (Auto) 0.6 Neut # 3.7 Lymph # 1.4 [place] # 0.7 Eos # 0.2 Baso # 0.0 Sodium Potassium Chloride Carbon Dioxide Anion Gap BUN Creatinine Est GFR ( Amer) Est GFR (Non-Af Amer) POC Glucose (mg/dL) 104 107 Random Glucose Hemoglobin A1c Calcium Phosphorus Magnesium Total Bilirubin AST ALT Alkaline Phosphatase Total Protein Albumin Globulin Albumin/Globulin Ratio Triglycerides Cholesterol LDL Cholesterol Direct HDL Cholesterol 25-OH Vitamin D Total Free T4 TSH 3rd Generation 06/23/17 06/23/17 06/23/17 06:25 06:25 06:25 WBC RBC Hgb Hct MCV MCH MCHC RDW Plt Count MPV Neut % (Auto) Lymph % (Auto) [place] % (Auto) Eos % (Auto) Baso % (Auto) Neut # Lymph # [place] # Eos # Baso # Sodium 140 Potassium 3.2 L Chloride 102 Carbon Dioxide 26 Anion Gap 15 BUN 6 L Creatinine 0.7 L Est GFR ( Amer) > 60 Est GFR (Non-Af Amer) > 60 POC Glucose (mg/dL) Random Glucose 75 Hemoglobin A1c 4.9 Calcium 8.4 L Phosphorus 2.4 L Magnesium 1.4 L Total Bilirubin 0.7 AST 17 ALT 27 Alkaline Phosphatase 67 Total Protein 6.1 L Albumin 3.0 L Globulin 3.1 Albumin/Globulin Ratio 1.0 Triglycerides 65 D Cholesterol 101 LDL Cholesterol Direct 52 HDL Cholesterol 40 25-OH Vitamin D Total 25.6 L Free T4 TSH 3rd Generation 2.25 06/23/17 06/23/17 06/23/17 06:25 07:06 10:10 WBC RBC Hgb Hct MCV MCH MCHC RDW Plt Count MPV Neut % (Auto) Lymph % (Auto) [place] % (Auto) Eos % (Auto) Baso % (Auto) Neut # Lymph # [place] # Eos # Baso # Sodium Potassium Chloride Carbon Dioxide Anion Gap BUN Creatinine Est GFR ( Amer) Est GFR (Non-Af Amer) POC Glucose (mg/dL) 75 88 Random Glucose Hemoglobin A1c Calcium Phosphorus Magnesium Total Bilirubin AST ALT Alkaline Phosphatase Total Protein Albumin Globulin Albumin/Globulin Ratio Triglycerides Cholesterol LDL Cholesterol Direct HDL Cholesterol 25-OH Vitamin D Total Free T4 1.73 TSH 3rd Generation 06/23/17 11:08 WBC RBC Hgb Hct MCV MCH MCHC RDW Plt Count MPV Neut % (Auto) Lymph % (Auto) [place] % (Auto) Eos % (Auto) Baso % (Auto) Neut # Lymph # [place] # Eos # Baso # Sodium Potassium Chloride Carbon Dioxide Anion Gap BUN Creatinine Est GFR ( Amer) Est GFR (Non-Af Amer) POC Glucose (mg/dL) 96 Random Glucose Hemoglobin A1c Calcium Phosphorus Magnesium Total Bilirubin AST ALT Alkaline Phosphatase Total Protein Albumin Globulin Albumin/Globulin Ratio Triglycerides Cholesterol LDL Cholesterol Direct HDL Cholesterol 25-OH Vitamin D Total Free T4 TSH 3rd Generation Assessment & Plan - Assessment and Plan (Free Text) Assessment: palliative consult Code status, Full Code, non Advance Directive/ Living Will on chart Patient is alert, altered, responds to voice stimuli, makes eyes contact and answers simple questions with "yes/no" answers. No acute distress noted. When asked if he was hungry he answered yes, but did not know where he was and what year we were in. Skin intact , and had to toes physical exam was negative acute findings. Per nursing, patient tolerated about 20- 25 % of his lunch. BP 149/71, HR 64, O2sat 98%. WBC 7.1, Hb 11.6, K 3.3. As per record Doctor Matthieu spoke to family regarding the possibility of PEG insertion in case patient puts himself in risks of malnutrition and family is considering it. I called Kendy, patient's niece and left voice mail. I wanted to discuss Code status. Impression * Patient is alert , altered , in no acute distress * Patient is forgetful, confused and unable to make his needs known * Patient's needs max assistance with ADLs, especially with feedings * Patient's wishes for the end of life care are not known Suggestion * Assist with each meal and offer PO fluids throughout the day. Patient is not able to recognize his feelings of thirst and hunger due to Dementia * Would try to avoid PEG as long as possible as the quality of life will not be the same once PEG is in. If patient continues to pocket the food and put himself in the risks of malnutrition, than the PEG is the only answer * Patient should be made DNR/DNI. If Kendy calls back ( the NOK), I will discuss Cpde status with her. Thank you for consulting Palliative care
--- NOTE | 2017-06-23 20:07 | CP.PCM.PN ---
Subjective - Date & Time of Evaluation Date of Evaluation: 06/23/17 Time of Evaluation: 08:20 - Subjective Subjective: clinically same Objective - Vital Signs/Intake and Output Vital Signs (last 24 hours): Temp Pulse Resp BP Pulse Ox 97.5 F L 60 18 126/72 95 06/23/17 15:00 06/23/17 15:00 06/23/17 15:00 06/23/17 15:00 06/23/17 15:00 Intake and Output: 06/23/17 06/24/17 18:59 06:59 Intake Total 680 Balance 680 - Medications Medications: Current Medications Donepezil HCl (Aricept) 10 mg PO HS [facility] Last Admin: 06/22/17 21:33 Dose: 10 mg Enoxaparin Sodium (Lovenox) 40 mg SC DAILY [facility] Last Admin: 06/23/17 10:40 Dose: Not Given Ferrous Sulfate (Feosol) 325 mg PO BID [facility] Last Admin: 06/23/17 17:42 Dose: 325 mg Fluconazole (Diflucan Iv 100 Mg/50 Ml Ns) 50 mls @ 100 mls/hr IVPB DAILY [facility] Last Admin: 06/23/17 10:39 Dose: 100 mls/hr Potassium Chloride (Potassium Chloride 20 Meq/100 Ml) 20 meq in 100 mls @ 50 mls/hr IVPB Q2 [facility] Stop: 06/23/17 23:59 Last Admin: 06/23/17 19:52 Dose: 50 mls/hr Insulin Aspart (Novolog) 0 unit SC ACHS [facility] PRN Reason: Protocol Last Admin: 06/23/17 17:43 Dose: Not Given Memantine (Namenda) 10 mg PO DAILY [facility] Last Admin: 06/23/17 10:17 Dose: Not Given Oxybutynin Chloride (Ditropan Tab) 5 mg PO TID [facility] Last Admin: 06/23/17 17:42 Dose: 5 mg Pantoprazole Sodium (Protonix Ec Tab) 40 mg PO DAILY [facility] Last Admin: 06/23/17 10:17 Dose: Not Given - Labs Labs: 06/23/17 06:25 06/23/17 06:25 PT 14.2 SECONDS (9.7-12.2) H 06/22/17 08:19 INR 1.2 06/22/17 08:19
[2017-06-24 01:31] VITALS: RESP 20
--- NOTE | 2017-06-24 05:33 | CP.PCM.PN ---
<Amarilys Avendaño - Last Filed: 06/24/17 07:37> Subjective - Date & Time of Evaluation Date of Evaluation: 06/24/17 Time of Evaluation: 05:30 - Subjective Subjective: Gastroenterology Fellow/PGY5 Progress Note Patient nods head to questioning. Denies abdominal pain. Nods yes to that he is hungry and will eat today. Nursing denies any acute events overnight. A 12- point review of systems unable to be completed due to nonverbal state. Objective - Vital Signs/Intake and Output Vital Signs (last 24 hours): Temp Pulse Resp BP Pulse Ox 97.6 F 66 20 112/69 96 06/24/17 00:00 06/24/17 00:00 06/24/17 00:00 06/24/17 00:00 06/24/17 00:00 Intake and Output: 06/23/17 06/24/17 18:59 06:59 Intake Total 680 500 Output Total 0 Balance 680 500 - Medications Medications: Current Medications Donepezil HCl (Aricept) 10 mg PO HS [facility] Last Admin: 06/23/17 21:38 Dose: 10 mg Enoxaparin Sodium (Lovenox) 40 mg SC DAILY [facility] Last Admin: 06/23/17 10:40 Dose: Not Given Ferrous Sulfate (Feosol) 325 mg PO BID [facility] Last Admin: 06/23/17 17:42 Dose: 325 mg Fluconazole (Diflucan Iv 100 Mg/50 Ml Ns) 50 mls @ 100 mls/hr IVPB DAILY [facility] Last Admin: 06/23/17 10:39 Dose: 100 mls/hr Insulin Aspart (Novolog) 0 unit SC ACHS [facility] PRN Reason: Protocol Last Admin: 06/23/17 17:43 Dose: Not Given Memantine (Namenda) 10 mg PO DAILY [facility] Last Admin: 06/23/17 10:17 Dose: Not Given Oxybutynin Chloride (Ditropan Tab) 5 mg PO TID [facility] Last Admin: 06/23/17 17:42 Dose: 5 mg Pantoprazole Sodium (Protonix Ec Tab) 40 mg PO DAILY [facility] Last Admin: 06/23/17 10:17 Dose: Not Given - Labs Labs: 06/23/17 06:25 06/23/17 06:25 PT 14.2 SECONDS (9.7-12.2) H 06/22/17 08:19 INR 1.2 06/22/17 08:19 - Constitutional Appears: Non-toxic, No Acute Distress - Head Exam Head Exam: ATRAUMATIC, NORMOCEPHALIC - Eye Exam Eye Exam: EOMI, PERRL Pupil Exam: PERRL. absent: Miosis, Mydriatic - ENT Exam ENT Exam: Mucous Membranes Moist, Normal Oropharynx - Neck Exam Neck Exam: Full ROM, Normal Inspection - Respiratory Exam Respiratory Exam: Clear to Ausculation Bilateral. absent: Rales, Rhonchi, Wheezes - Cardiovascular Exam Cardiovascular Exam: RRR, +S1, +S2. absent: Gallop, Rubs - GI/Abdominal Exam GI & Abdominal Exam: Soft, Normal Bowel Sounds. absent: Distended, Firm, Guarding, Rigid, Tenderness, Organomegaly, Rebound - Extremities Exam Extremities Exam: Normal Inspection. absent: Pedal Edema - Neurological Exam Neurological Exam: Alert, Awake - Psychiatric Exam Additional comments: unable to assess, minimal verbal response - Skin Skin Exam: Dry, Intact, Normal Color, Warm Assessment and Plan - Assessment and Plan (Free Text) Assessment: 82 year old male with history of PUD, COPD, Dementia, Parkinson's, Hypertension , Hyperlipidemia, Diabetes, and diverticular bleed s/p transfusions 05/2017 presenting from nursing facility for poor oral intake. Active treatment of failure to thrive due to poor oral intake. Prior EGD and colonoscopy 06/07/17 ( [facility] [place]) showed nonerosive gastritis, few cecum and transverse polyps, large right sided diverticulosis without active bleeding and large blood with clots throughout colon (R>L). Plan: >speech pathologist- no aspiration, delayed swallow, puree, nectar thick >tolerated puree diet with assistance >continue calorie count >monitor oral intake over next 24 hours, will discuss proceeding with PEG placement if nutritional goals are not met >POA agrees with treatment plan >will follow clinical course <Tavo Siu - Last Filed: 06/24/17 09:28> Objective - Vital Signs/Intake and Output Vital Signs (last 24 hours): Temp Pulse Resp BP Pulse Ox 97.6 F 68 20 117/72 95 06/24/17 07:36 06/24/17 07:36 06/24/17 07:36 06/24/17 07:36 06/24/17 07:36 Intake and Output: 06/24/17 06/24/17 06:59 18:59 Intake Total 500 Output Total 0 Balance 500 - Medications Medications: Current Medications Donepezil HCl (Aricept) 10 mg PO HS [facility] Last Admin: 06/23/17 21:38 Dose: 10 mg Enoxaparin Sodium (Lovenox) 40 mg SC DAILY [facility] Last Admin: 06/23/17 10:40 Dose: Not Given Ferrous Sulfate (Feosol) 325 mg PO BID [facility] Last Admin: 06/23/17 17:42 Dose: 325 mg Fluconazole (Diflucan Iv 100 Mg/50 Ml Ns) 50 mls @ 100 mls/hr IVPB DAILY [facility] Last Admin: 06/23/17 10:39 Dose: 100 mls/hr Potassium Chloride (Potassium Chloride 20 Meq/100 Ml) 20 meq in 100 mls @ 50 mls/hr IVPB Q6H [facility] Stop: 06/24/17 16:59 Insulin Aspart (Novolog) 0 unit SC ACHS [facility] PRN Reason: Protocol Last Admin: 06/24/17 07:49 Dose: Not Given Memantine (Namenda) 10 mg PO DAILY [facility] Last Admin: 06/23/17 10:17 Dose: Not Given Oxybutynin Chloride (Ditropan Tab) 5 mg PO TID [facility] Last Admin: 06/23/17 17:42 Dose: 5 mg Pantoprazole Sodium (Protonix Ec Tab) 40 mg PO DAILY [facility] Last Admin: 06/23/17 10:17 Dose: Not Given - Labs Labs: 06/24/17 06:19 06/24/17 06:19 PT 14.2 SECONDS (9.7-12.2) H 06/22/17 08:19 INR 1.2 06/22/17 08:19 Attending/Attestation - Attestation I have personally seen and examined this patient.: Yes I have fully participated in the care of the patient.: Yes I have reviewed all pertinent clinical information, including history, physical exam and plan: Yes Notes (Text): 06/24/17 09:26 82 year old male with h/o PUD, COPD, Dementia, Parkinson's disease, HTN, DM, HLD , Diverticular bleeding recently admitted with failure to thrive. 1. Failure to thrive 2. Dementia Plan: -speech cleared for puree/nectar thick diet -calorie count ongoing -family considering PEG -await above
[2017-06-24 06:41] LABS: BASO % 0.5 % (0.0-2.0); EOS # 0.2 K/uL (0.0-0.7); HEMATOCRIT 35.5 % (35.0-51.0); LYMPH # 1.2 K/uL (1.0-4.3); LYMPH % 17.7 % (20.0-40.0); MEAN CELL VOLUME 89.4 fL (80.0-94.0); MEAN CORPUSCULAR HEMOGLOBIN 29.8 pg (27.0-31.0); MEAN CORPUSCULAR HGB CONC 33.3 g/dL (33.0-37.0); MEAN PLATELET VOLUME 7.8 fL (7.2-11.7); MONO # 0.8 K/uL (0.0-0.8); RED CELL DISTRIBUTION WIDTH 17.4 % (11.5-14.5); WHITE BLOOD COUNT 6.9 K/uL (4.8-10.8)
[2017-06-24 06:48] LABS: CHLORIDE 103 mmol/L (98-107); POTASSIUM 3.4 mmol/L (3.6-5.2); SODIUM 139 mmol/L (132-148)
[2017-06-24 06:50] LABS: ALKALINE PHOSPHATASE 65 U/L (38-126); AST/SGOT 21 U/L (17-59); BILIRUBIN,TOTAL 0.7 mg/dL (0.2-1.3); BLOOD UREA NITROGEN 6 mg/dL (9-20); CARBON DIOXIDE 25 mmol/L (22-30); GFR AFRICAN-AMERICAN > 60; GLUCOSE,RANDOM 70 mg/dL (75-110); TOTAL PROTEIN 6.1 g/dL (6.3-8.3)
[2017-06-24 06:51] LABS: ALT/SGPT 20 U/L (21-72); CALCIUM 8.3 mg/dl (8.6-10.4); MAGNESIUM 1.8 mg/dL (1.6-2.3); PHOSPHOROUS 2.6 mg/dL (2.5-4.5)
[2017-06-24 07:38] VITALS: O2SAT 95
[2017-06-24] MEDS: (Novolog) Insulin Aspart, Recombinant 100 u/ml 10 ml vial SC SCH ×4 (07:49→21:06)
--- NOTE | 2017-06-24 08:56 | CP.PCM.PN ---
Subjective - Date & Time of Evaluation Date of Evaluation: 06/24/17 Time of Evaluation: 10:00 - Subjective Subjective: PGY3 on medicine Dr. Mike service: Pt seen and examined at bedside. No change in clinical status. Pt nods to question and was able to follow simple commands. No acute events overnight per RN. Per Dr. Mike, pt will be discharged today to rehab as per his discussion with Kendy, the power of family law attorney. Pt to resume current care and medications there and transfer back if PEG placement is needed. Pt to be encourage small frequent feeding as tolerated. Objective - Vital Signs/Intake and Output Vital Signs (last 24 hours): Temp Pulse Resp BP Pulse Ox 97.6 F 68 20 117/72 95 06/24/17 07:36 06/24/17 07:36 06/24/17 07:36 06/24/17 07:36 06/24/17 07:36 Intake and Output: 06/24/17 06/24/17 06:59 18:59 Intake Total 500 Output Total 0 Balance 500 - Medications Medications: Current Medications Donepezil HCl (Aricept) 10 mg PO HS [facility] Last Admin: 06/23/17 21:38 Dose: 10 mg Enoxaparin Sodium (Lovenox) 40 mg SC DAILY [facility] Last Admin: 06/23/17 10:40 Dose: Not Given Ferrous Sulfate (Feosol) 325 mg PO BID [facility] Last Admin: 06/23/17 17:42 Dose: 325 mg Fluconazole (Diflucan Iv 100 Mg/50 Ml Ns) 50 mls @ 100 mls/hr IVPB DAILY [facility] Last Admin: 06/23/17 10:39 Dose: 100 mls/hr Potassium Chloride (Potassium Chloride 20 Meq/100 Ml) 20 meq in 100 mls @ 50 mls/hr IVPB Q6H [facility] Stop: 06/24/17 16:59 Insulin Aspart (Novolog) 0 unit SC ACHS [facility] PRN Reason: Protocol Last Admin: 06/24/17 07:49 Dose: Not Given Memantine (Namenda) 10 mg PO DAILY [facility] Last Admin: 06/23/17 10:17 Dose: Not Given Oxybutynin Chloride (Ditropan Tab) 5 mg PO TID [facility] Last Admin: 06/23/17 17:42 Dose: 5 mg Pantoprazole Sodium (Protonix Ec Tab) 40 mg PO DAILY [facility] Last Admin: 06/23/17 10:17 Dose: Not Given - Labs Labs: 06/24/17 06:19 06/24/17 06:19 PT 14.2 SECONDS (9.7-12.2) H 06/22/17 08:19 INR 1.2 06/22/17 08:19
[2017-06-24] MEDS: Pantoprazole 40 mg EC Tab PO SCH (10:34)
[2017-06-24] MEDS: Enoxaparin 40 mg Syringe SC SCH (10:34)
[2017-06-24] MEDS: Fluconazole IV 100mg/50 ml NS 50 ML IVPB SCH (11:00)
[2017-06-24 15:41] VITALS: BP 104/65; PULSE 70; TEMP 97.7
--- NOTE | 2017-06-24 19:11 | CP.PCM.PN ---
Subjective - Date & Time of Evaluation Date of Evaluation: 06/24/17 Time of Evaluation: 07:40 - Subjective Subjective: clinically same Objective - Vital Signs/Intake and Output Vital Signs (last 24 hours): Temp Pulse Resp BP Pulse Ox 97.7 F 70 20 104/65 95 06/24/17 15:00 06/24/17 15:00 06/24/17 15:00 06/24/17 15:00 06/24/17 15:00 Intake and Output: 06/24/17 06/25/17 18:59 06:59 Intake Total 370 Balance 370 - Medications Medications: Current Medications Donepezil HCl (Aricept) 10 mg PO HS [facility] Last Admin: 06/23/17 21:38 Dose: 10 mg Enoxaparin Sodium (Lovenox) 40 mg SC DAILY [facility] Last Admin: 06/24/17 10:34 Dose: 40 mg Ferrous Sulfate (Feosol) 325 mg PO BID [facility] Last Admin: 06/24/17 17:34 Dose: 325 mg Fluconazole (Diflucan Iv 100 Mg/50 Ml Ns) 50 mls @ 100 mls/hr IVPB DAILY [facility] Last Admin: 06/24/17 11:00 Dose: 100 mls/hr Insulin Aspart (Novolog) 0 unit SC ACHS [facility] PRN Reason: Protocol Last Admin: 06/24/17 17:34 Dose: Not Given Memantine (Namenda) 10 mg PO DAILY [facility] Last Admin: 06/24/17 10:34 Dose: 10 mg Oxybutynin Chloride (Ditropan Tab) 5 mg PO TID [facility] Last Admin: 06/24/17 17:33 Dose: 5 mg Pantoprazole Sodium (Protonix Ec Tab) 40 mg PO DAILY [facility] Last Admin: 06/24/17 10:34 Dose: 40 mg - Labs Labs: 06/24/17 06:19 06/24/17 06:19 PT 14.2 SECONDS (9.7-12.2) H 06/22/17 08:19 INR 1.2 06/22/17 08:19 - Constitutional Appears: Well - Head Exam Head Exam: ATRAUMATIC, NORMAL INSPECTION, NORMOCEPHALIC - Eye Exam Eye Exam: EOMI, Normal appearance, PERRL Pupil Exam: NORMAL ACCOMODATION, PERRL - ENT Exam ENT Exam: Mucous Membranes Moist, Normal Exam - Neck Exam Neck Exam: Full ROM, Normal Inspection. absent: Lymphadenopathy - Respiratory Exam Respiratory Exam: Decreased Breath Sounds - Cardiovascular Exam Cardiovascular Exam: REGULAR RHYTHM, +S1, +S2 - GI/Abdominal Exam GI & Abdominal Exam: Soft, Diminished Bowel Sounds - Rectal Exam Rectal Exam: Deferred
== END 2017-06-24 23:30 | DRG 883 ==
LOC: C.ER 14:34 → C.9E 18:26 → C.3T 18:26
PROVIDERS: ADMIT Internal Medicine Nephrology; ATTEND Internal Medicine Nephrology
DX: F50.00 Anorexia nervosa, unspecified (principal); E11.649 Type 2 diabetes mellitus with hypoglycemia without coma; G20 Parkinson's disease; R62.7 Adult failure to thrive; F02.80 Dementia in other diseases classified elsewhere, unspecified severity, without behavioral disturbance, psychotic disturbance, mood disturbance, and anxiety; E78.00 Pure hypercholesterolemia, unspecified; I10 Essential (primary) hypertension; J44.9 Chronic obstructive pulmonary disease, unspecified; K29.70 Gastritis, unspecified, without bleeding; K57.30 Diverticulosis of large intestine without perforation or abscess without bleeding; R13.10 Dysphagia, unspecified; Z66 Do not resuscitate; Z86.010 Personal history of colon polyps; Z87.891 Personal history of nicotine dependence; D64.9 Anemia, unspecified; Z87.11 Personal history of peptic ulcer disease; Z79.4 Long term (current) use of insulin